=== PATIENT | female | born 1950 | race Caucasian/White ===

== ENCOUNTER 2022-04-21 08:18 | Outpatient (CLI) | payer MEDICARE, OTHER, SELFPAY | END 2022-04-21 08:19 | disposition home or self-care (01) | LOC: LAB 08:27 | PROVIDERS: PCP Family Medicine; Visit Provider Orthopaedic Surgery | DX: Z01.818 Encounter for other preprocedural examination (principal) | CPT/HCPCS: 36415; 86850; 86900; 86901 ==

== ENCOUNTER 2022-04-23 10:26 | Day surgery (SDC) | payer MEDICARE, OTHER, SELFPAY ==
[2022-04-16] MEDS: ACETAMINOPHEN 500 MG TABLET 1000 MG PO (11:07)
[2022-04-23] VITALS (31 sets, daily range): BP systolic 87–148; BP diastolic 29–79; PULSE 53–86; RESP 11–20; TEMP 36.3–37.2; O2SAT 89–100; BMI 26.9
[2022-04-23] MEDS: SODIUM CHLORIDE 0.9 % (FLUSH) 10 ML SYRINGE IVF (10:45)
[2022-04-23] MEDS: LACTATED RINGERS 1000 ML 1,000 ML 100 ML IV (10:45)
[2022-04-23] MEDS: OXYCODONE (CR) 10 MG TAB.ER.12H PO (11:00)
--- NOTE | 2022-04-23 11:17 | SUR.PREOP ---
TIME?OUT:? PT/RN/MDA?VERIFICATION?OF?SURGICAL?SITE,?PROCEDURE,?AND?CONSENT OBTAINED?PRIOR?TO?INVASIVE?PROCEDURE. CORRECT SITE IDENTIFIED, SITE MARKED. BLOCK COMPLETED BY DR LILY BELL MDA AND MARILYN HOLMAN
[2022-04-23] MEDS: MIDAZOLAM HCL 1 MG/ML inj IVP (11:20)
[2022-04-23] MEDS: fentaNYL 100 MCG/2 ML inj IVP (11:20)
[2022-04-23] MEDS: CEFAZOLIN 2 GM INJ IVP (11:40)
--- NOTE | 2022-04-23 13:20 | CRLHL7_ITS ---
For Patients: As a result of the Cures Act, medical imaging exams and procedure reports are released immediately into your electronic medical record. You may view this report before your referring provider. If you have questions, please contact your health care provider. Indication: post op AZUCENA Technique: AP hip centered pelvis and lateral view left hip Findings/Impression: Hardware from a left total hip arthroplasty is in satisfactory position. Bone alignment is normal. No sign of acute fracture. Postop changes are within normal limits. Dictated by Jasper Correa MD @ 04/23/2022 2:36:03 PM (Electronically Signed)
--- NOTE | 2022-04-23 13:25 | P.ORPRC_ITS ---
Procedure Note Date of procedure: 04/23/22 Procedure: SURGEON: Saw Don MD ADVERTISING SALES EXECUTIVE: Marcia Alamo PA-C, JENA Ramirez PREOPERATIVE DIAGNOSIS: Left hip osteoarthritis POSTOPERATIVE DIAGNOSIS: Left hip osteoarthritis NAME OF OPERATION: Left total hip arthroplasty IMPLANTS: 1. [employer] [place] # 50 sector ingrowth cup 2. 32 x +4 neutral polyethylene 3. Actis #3 standard collared ingrowth stem 4. 32+ 1 ceramic femoral head ANESTHESIA: General ESTIMATED BLOOD LOSS: 500 cc COMPLICATIONS: None SPECIMENS: None DRAINS: None PREOPERATIVE ANTIBIOTICS: Ancef 2 grams INDICATIONS: The patient is a 71-year-old with a longstanding history of severe, unrelenting left hip pain secondary to end-stage left hip osteoarthritis. Despite appropriate nonoperative management, including activity modification, use of an assist device, anti-inflammatories, [id number] pain medication, physical therapy and injections, they continue to have pain and disability. Operative intervention was offered. The risks, benefits and expected outcomes were discussed in detail. These incl uded but were not limited to: Infection, bleeding, injury to blood vessel or nerve, venous thromboembolism. All questions were answered to their satisfaction. Use of an funeral home assistant was necessary throughout the case for patient positioning and safety, soft tissue retraction and closure. PROCEDURE: The patient was placed supine on the [place] table. General anesthesia was administered. The funeral home assistant made sure the patient was properly positioned. The left hip was prepped and draped in the usual sterile fashion. The image intensifier was brought in for a perfect AP pelvis and a perfect double tear drop AP view of each hip which were used for intraoperative templating with our fluoroscopic guide. An oblique incision was made 3 cm distal and 3 cm lateral to the anterior superior iliac spine. The funeral home assistant retracted the soft tissues to protect them. Subcutaneous dissection was taken with electrocautery to the superficial fascia. The fascia was divided in line with the incision. Blunt dissection was carried medially to the tensor fascia inés and sartorius interval. Deep dissection was carried with electrocautery. The circumflex vessels were cauterized and divided. The capsule was exposed and then divided in a T- fashion, tagged with #1 Ethibond sutures. Retractors were placed in the joint, held by the funeral home assistant. The corkscrew was placed in the femoral head. The neck cut was made in the subcapital region. We made a second neck cut more distal. The napkin ring of bone was removed. The femoral head was removed intact. Acetabular retractors were placed, held by the funeral home assistant. The labrum was sharply debrided. The capsule was released. The 43 mm reamer was used to the true medial wall. We then enlarged in 2 mm increments using the image intensifier for our reamer placement. We impacted the cup which had excellent purchase. We placed the hole eliminator and the polyethylene. Attention was then turned to the proximal femur. The limb was placed in 140 de grees of external rotation, maximum extension and adduction. A significant amount of time was spent releasing the capsule to allow us to deliver the femur into the wound and complete the femoral side safely. Retractors were held by the funeral home assistant throughout the femoral preparation. The jukebox routeman and canal finder were used. Broaches were used to a stable size. The calcar reamer was used. Trial components were placed. The hip was reduced and was found to be stable with appropriate soft tissue tension. Length and offset had been nicely restored using the image intensifier and our fluoroscopic guide. Trial components were removed. The stem was impacted. We placed the femoral head. Again, the hip was reduced and was found to be stable with appropriate soft tissue tension. Length and offset had been nicely restored. The funeral home assistant did a three minute dilute Betadine solution soak. The funeral home assistant irrigated the wound with 3 liters of normal saline via pulse lavage. The funeral home assistant repaired the anterior capsule with a #1 Vicryl and our previously placed Ethibond sutures. The funeral home assistant closed the fascia over the tensor fascia inés with a #1 PDO Stratafix, subcutaneous tissues with 2-0 Vicryl, skin with a running 3-0 Stratafix and glue. A dry dressing was applied by the funeral home assistant. Sponge and needle counts were correct x 2. The patient tolerated the procedure well; there were no apparent complications. They were awakened and extubated in the operating room, sent to the Post-Anesthesia Care Unit in satisfactory condition. PLAN: 1. The patient will be mobilized with physical therapy, weight-bearing as tolerates 2. Xarelto x 5 days then aspirin x 30 days will be used for DVT prophylaxis 3. The patient will be discharged once medically appropriate
--- NOTE | 2022-04-23 13:34 | CRLHL7_ITS ---
For Patients: As a result of the Cures Act, medical imaging exams and procedure reports are released immediately into your electronic medical record. You may view this report before your referring provider. If you have questions, please contact your health care provider. Indication: Hip replacement surgery Technique: AP hip fluoroscopic image. Fluoroscopy time 78.1 seconds. Findings/Impression: Hardware from a left total hip arthroplasty is in satisfactory position. Dictated by Jasper Correa MD @ 04/23/2022 1:43:12 PM (Electronically Signed)
--- NOTE | 2022-04-23 14:09 | W.ANESCHARGE ---
Anesthesia Charges Start Date/Time Anesthesia Start Date: 04/23/22 Anesthesia Start Time: 11:32 Stop Date/Time Anesthesia Stop Date: 04/23/22 Anesthesia Stop Time: 14:04 Summary Emergency: No Extremes of Age: Over 72-CPT [id number]
--- NOTE | 2022-04-23 14:18 | W.ANESCHARGE ---
Anesthesia Charges Start Date/Time Anesthesia Start Date: 04/23/22 Anesthesia Start Time: 11:32 Stop Date/Time Anesthesia Stop Date: 04/23/22 Anesthesia Stop Time: 14:04 Summary Emergency: No
[2022-04-23] MEDS: diphenhydrAMINE 50 MG/ML inj IVP (14:23)
--- NOTE | 2022-04-23 14:27 | P.IMCN_ITS ---
Date of Consult Patient: [facility] Patient Consult date: 04/23/22 Requesting Physician: Orthopedics ([place]) Primary Care Provider: Sol Crawford MD Consult Narrative Reason for consult: Medical management kidney disease, GERD, hypertension, and MS Narrative: Kenyatta Younger is a 71 year old female underwent an elective left total hip arthroplasty today by Dr. Don for intractable pain due to end-stage osteoarthritis. She tells me the IV was not working postoperatively, so there was a time where she was a little bit behind on pain medication, but she has c aught up now and is feeling better again. Her blood pressures have remained low normal in the 90s systolic. She tells me that at home her goal is 140 systolic and it is often higher than that when she is at the doctor's office. She is normally a big water drinker and does not think she was dehydrated coming into this, but does note that she Is extremely thirsty since she was not able to drink since midnight. 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) Stage 1 chronic kidney disease Trigger finger of left thumb (11/08/09) Trigger finger of right thumb (11/08/09) Vaccination not carried out Vertigo White coat syndrome with diagnosis of hypertension Surgical History (Updated 04/23/22 @ 14:56 by Katja Craft MD) H/O vaginal hysterectomy (11/21/10) History of colonoscopy (04/09/18) History of esophagogastroduodenoscopy (EGD) History of hysterectomy for benign disease (02/2011) S/P total left hip arthroplasty Family History (Updated 04/23/22 @ 14:58 by Katja Craft MD) Uncle Colon cancer, Onset Age: 60 Sister Congenital heart disease Mother Stroke, Onset Age: 70 Other Colonic polyp Social History (Updated 04/23/22 @ 16:43 by Katja Craft MD) Narrative: does not drink alcohol does not exercise 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 He is a quadriplegic from a motor vehicle accident 20 years ago. He is somewhat independent though, even being able to drive by himself. tobacco abuse- 3 Cigarettes/day, 45 years on and off wishes to be DNR/DNI Smoking Status: Current some day smoker What tobacco products do you use: cigarettes Do you use any of these nicotine containing products: None How often do you have a drink containing alcohol: never AUDIT-C Alcohol total score: 0 Non-prescribed substance use: denies use Caffeine: Yes (coffee, 1 cup/morning; occ Pepsi) Are you using contraception or practicing any form of control: No Meds Home Medications and Allergies Home Medications Medication Instructions Recorded Confirmed Type amlodipine 5 mg tablet 5 mg PO DAILY 04/19/22 04/23/22 History aspirin 81 mg tablet,delayed 81 mg PO DAILY 04/19/22 04/23/22 History release lorazepam 0.5 mg tablet (Ativan) 0.5 mg PO DAILY PRN 04/19/22 04/23/22 History losartan 25 mg tablet 25 mg PO DAILY 04/19/22 04/23/22 History pantoprazole 20 mg tablet,delayed 20 mg PO DAILY 04/19/22 04/23/22 History release pravastatin 10 mg tablet 10 mg PO HS 04/19/22 04/23/22 History Home Medication Comments: Aspirin, fish oil and other supplements were held 5 days ago for surgery. Allergies Allergy/AdvReac Type Severity Reaction Status Date / Time escitalopram AdvReac Mild Nausea Verified 04/23/22 11:16 NSAIDS (Non-Steroidal AdvReac Unknown Kidney Verified 04/23/22 11:16 Anti-Inflamma issue-not suppose to take Exam Narrative: Exam Narrative: General: No acute distress. Awake alert oriented x3. Laying flat in bed with a Giles warmer on. HEENT: Normocephalic atraumatic, pupils equally round and reactive to light and accommodation. Oropharynx clear. Mucous membranes are slightly dry. No cervical lymphadenopathy, thyromegaly or carotid bruits. No JVD. Cardiovascular: Regular rate and rhythm. No murmurs, gallops, or rubs. Chest: No increased work of breathing. Clear to auscultation bilaterally. No crackles or wheezes. Abdomen: Bowel sounds present. Soft, nondistended, nontender. No hepatosplenomegaly or masses. Extremities: left anterior hip bandage is clean, dry, and intact. No edema, no cyanosis or clubbing. Skin: No jaundice, no pallor, no rashes. Const: Vital Signs, click to edit/add: Vital Signs - 24 hr 04/23/22 11:01 04/23/22 11:20 04/23/22 11:25 Temperature 97.4 F L Pulse Rate 66 77 75 Respiratory Rate 20 12 14 Blood Pressure 148/75 H 144/68 H 145/74 H Pulse Oximetry 96 100 100 04/23/22 11:30 Temperature Pulse Rate 78 Respiratory Rate 14 Blood Pressure 146/79 H Pulse Oximetry 100 Assessment and Plan Assessment and plan (1) S/P total left hip arthroplasty: Status: Acute Assessment and Plan: Doing well, cares per Ortho. (2) Hypertension: Status: Chronic Assessment and Plan: Blood pressure low normal postoperatively, asymptomatic. Will hold antihyper tensives. Encourage oral fluids. (3) Multiple sclerosis: Problem comment: exconde Status: Chronic Assessment and Plan: Stable. Not currently on any medications. Monitor for symptoms. (4) Gastroesophageal reflux disease with hiatal hernia: Status: Chronic Assessment and Plan: Continue daily pantoprazole. (5) Dyslipidemia: Status: Chronic Assessment and Plan: Continue pravastatin. (6) Generalized anxiety disorder: Status: Chronic Assessment and Plan: Continue lorazepam p.r.n. as she takes at home. 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 Check these and renal function tomorrow. Plan VTE prophylaxis with 5 days of Xarelto then switching to twice a day aspirin.
[2022-04-23] MEDS: HYDROmorphone 0.5 mg/0.5 ml inj IVP (14:49)
--- NOTE | 2022-04-23 15:25 | W.PM.NB ---
Nerve Block Nerve Block Time Seen by Provider: 15:10 Date Seen: 04/23/22 Type of block requested by surgeon for post-operative analgesia: MITZY/LFCN Side: left Time out performed: Yes Verification of patient name: Yes Verification of date of : Yes Site marking: site marked Name of person performing procedure: Thony Martines Assistants, if any: ELECTRONIC PAGINATION SYSTEM OPERATOR Continuous monitoring Was continuous monitoring of O2 sat, B/P, groundwater monitoring technician, recorded every 15 minutes?: Yes Procedure Checklist: sterile prep, needles (22g) and gloves Ultrasound guided. Images saved: Yes Medications given in 5ml increments after negative aspiration: Ropivicaine %: 0.5 mL: 20 Needle gauge: 22 Patient tolerated procedure well: Yes Additional comments: MITZY block redone in PACU
[2022-04-23] MEDS: LACTATED RINGERS 1000 ML 1,000 ML 75 ML IV (16:12)
[2022-04-23] MEDS: CEFAZOLIN 1 GM in 0.9 % SODIUM CHLORIDE Mini-bag 100 ML IVPB (18:07)
[2022-04-23] MEDS: ACETAMINOPHEN 500 MG TABLET 1000 MG PO (18:07)
[2022-04-23] MEDS: OXYCODONE 5 MG TABLET PO ×2 (18:10→20:41)
--- NOTE | 2022-04-23 19:47 | PC.NURSE ---
pt to floor at 1540. pt pleasant and cooperative. tolerating PO fluids, ate few bites of soup for dinner, stated slight nausea. c/o pain 8/, 10mg oxy given. pt has not yet gotten up to chair. BP 90/60s, encouraged liquids, MD aware. 75ml LR running. 1L o2 when pt is sleeping as she dipped as low as 83% on RA. Dressing to left hip CDI, active ice on.
[2022-04-23] MEDS: SENNOSIDES 1 TAB TABLET 2 TAB PO (20:40)
[2022-04-23] MEDS: PRAVASTATIN SODIUM 20 MG TABLET 10 MG PO (20:42)
[2022-04-24] MEDS: ACETAMINOPHEN 500 MG TABLET 1000 MG PO ×3 (00:22→12:01)
[2022-04-24] MEDS: 0.9 % SODIUM CHLORIDE 500 ML IV ×2 (00:40→05:19)
[2022-04-24] MEDS: CEFAZOLIN 1 GM in 0.9 % SODIUM CHLORIDE Mini-bag 100 ML IVPB ×2 (01:45→09:26)
[2022-04-24] MEDS: diphenhydrAMINE 50 MG/ML inj IVP (01:52)
[2022-04-24 03:00] VITALS: BP 128/71; PULSE 96; RESP 18; TEMP 36.6; O2SAT 96
[2022-04-24] MEDS: OXYCODONE 5 MG TABLET PO ×4 (03:53→12:00)
[2022-04-24] MEDS: MAG HYDROX/ALUMINUM HYD/SIMETH 30 ML ORAL.SUSP PO (03:59)
[2022-04-24] MEDS: HYDROmorphone 0.5 mg/0.5 ml inj IVP (04:07)
[2022-04-24] MEDS: LACTATED RINGERS 1000 ML 1,000 ML 75 ML IV (06:15)
[2022-04-24] MEDS: OMEPRAZOLE 20 MG CAPSULE DR PO (06:15)
[2022-04-24] MEDS: ONDANSETRON 2 MG/ML inj 4 MG IVP (06:18)
[2022-04-24 07:00] VITALS: BP 123/74; PULSE 67; RESP 18; TEMP 36.6; O2SAT 95
[2022-04-24 07:08] LABS: Chloride* 101 mmol/L (96-114); Sodium* 129 mmol/L (135-149)
[2022-04-24 07:11] LABS: Blood Urea Nitrogen* 18 mg/dL (7-30); Carbon Dioxide* 23 mmol/L (20-32); Creatinine* 0.7 mg/dL (0.5-1.5); Est. Creatinine Clearance* 41.99; Estimated Glomerular Filt Rate 93.56; Glucose* 141 mg/dL (60-115)
[2022-04-24 07:12] LABS: Calcium* 7.8 mg/dL (8.4-10.6)
--- NOTE | 2022-04-24 07:41 | PC.NURSE ---
[id number]: Patient cooperative with cares. Rates pain 5-9/10. See Emar for medication administration. A1, walker, GB. Tolerates well. CMS intact. Dressing to L. hip C/D/I. Unable to void. Bladder scan for 235mL and 218mL. Saline bolus x2 administered. Results pending. C/o nausea and had 1 small emesis. Zofran administered for relief.
[2022-04-24] MEDS: SENNOSIDES 1 TAB TABLET 2 TAB PO (08:52)
[2022-04-24] MEDS: RIVAROXABAN 10 MG TABLET PO (08:52)
[2022-04-24 08:58] LABS: Basophils Percent Auto 0.1 % (0.0-3.0); Hematocrit 27.3 % (33.0-51.0); Hemoglobin* 8.9 gm/dL (12.0-16.0); Immature Granulocytes Abs Auto 0.03 K/uL (0.00-0.30); Lymphocytes Percent Auto 8.2 % (20-44); Mean Corpuscular HGB Conc 33 gm/dL (32-36); Mean Corpuscular Hemoglobin 32 pg (26-34); Mean Corpuscular Volume 97 fL (80-100); Monocytes Percent Auto 6.8 % (0.0-11.0); Neutrophils Percent Auto 84.7 % (42.0-72.0); Platelet Count* 221 K/uL (140-440); RDW Coefficient of Variation % 11.8 % (11.5-15.5); Red Blood Count 2.81 m/uL (4.00-5.20); White Blood Count* 18.42 K/uL (4.50-11.00)
[2022-04-24 09:03] LABS: Slide Review Reflex No
--- NOTE | 2022-04-24 09:17 | PM.ORPN ---
Subjective Subjective Time Seen by Provider: 08:30 Date Seen: 04/24/22 Principal diagnosis: Status post left hip replacement Interval history: Patient is comfortable at rest. She describes anterior thigh discomfort. Ortho Exam Narrative Exam Narrative: Alert. Patient is in no acute distress. Converses without labored breathing. Hearing is grossly intact. CMS intact left lower extremity. Mild thigh tenderness to palpation. Soft tissues of the thigh and hip are soft. Dressing in place. Dressing has had additional tape applied. Nursing will change this dressing so it is waterproof for her. Const Vital Signs, click to edit/add: Vital Signs - 24 hr 04/23/22 11:01 04/23/22 11:20 04/23/22 11:25 Temperature 97.4 F L Pulse Rate 66 77 75 Pulse Rate [Right Pulse Oximeter] Respiratory Rate 20 12 14 Blood Pressure 148/75 H 144/68 H 145/74 H Blood Pressure [Right Arm] Pulse Oximetry 96 100 100 04/23/22 11:30 04/23/22 14:00 04/23/22 14:05 Temperature 97.6 F Pulse Rate 78 75 64 Pulse Rate [Right Pulse Oximeter] Respiratory Rate 14 12 16 Blood Pressure 146/79 H 96/62 91/74 Blood Pressure [Right Arm] Pulse Oximetry 100 93 94 04/23/22 14:10 04/23/22 14:15 04/23/22 14:20 Temperature Pulse Rate 70 65 77 Pulse Rate [Right Pulse Oximeter] Respiratory Rate 12 12 11 L Blood Pressure 102/58 L 104/29 L 120/79 Blood Pressure [Right Arm] Pulse Oximetry 93 93 92 04/23/22 14:25 04/23/22 14:30 04/23/22 14:35 Temperature Pulse Rate 65 54 L 55 L Pulse Rate [Right Pulse Oximeter] Respiratory Rate 12 15 12 Blood Pressure 114/66 103/51 L 95/55 L Blood Pressure [Right Arm] Pulse Oximetry 92 93 95 04/23/22 14:40 04/23/22 14:45 04/23/22 14:55 Temperature Pulse Rate 53 L 59 L 56 L Pulse Rate [Right Pulse Oximeter] Respiratory Rate 12 20 14 Blood Pressure 98/47 L 98/44 L 87/61 L Blood Pressure [Right Arm] Pulse Oximetry 94 93 92 04/23/22 15:00 04/23/22 15:10 04/23/22 15:25 Temperature Pulse Rate 63 60 Pulse Rate [Right Pulse Oximeter] Respiratory Rate 12 13 12 Blood Pressure 93/50 L 100/68 Blood Pressure [Right Arm] Pulse Oximetry 89 93 91 04/23/22 15:30 04/23/22 15:40 04/23/22 15:45 Temperature 98.2 F 97.5 F L 98 F Pulse Rate 58 L 60 Pulse Rate [Right Pulse Oximeter] 60 64 Respiratory Rate 14 14 16 Blood Pressure 88/42 L Blood Pressure [Right Arm] 94/57 L 98/67 Pulse Oximetry 91 96 98 04/23/22 16:00 04/23/22 16:15 04/23/22 16:30 Temperature 98 F 98 F 98 F Pulse Rate Pulse Rate [Right Pulse Oximeter] 72 61 64 Respiratory Rate 16 16 16 Blood Pressure Blood Pressure [Right Arm] 103/72 91/60 98/55 L Pulse Oximetry 98 98 98 04/23/22 17:00 04/23/22 17:30 04/23/22 18:00 Temperature 98.1 F 98.3 F 98.3 F Pulse Rate Pulse Rate [Right Pulse Oximeter] 86 80 76 Respiratory Rate 16 16 16 Blood Pressure Blood Pressure [Right Arm] 91/52 L 117/71 101/63 Pulse Oximetry 98 98 98 04/23/22 19:00 04/23/22 20:00 04/23/22 21:00 Temperature 99.0 F 98.8 F 98.9 F Pulse Rate Pulse Rate [Right Pulse Oximeter] 76 81 77 Respiratory Rate 18 18 16 Blood Pressure Blood Pressure [Right Arm] 101/58 L 116/73 109/73 Pulse Oximetry 98 95 96 04/23/22 23:00 04/24/22 03:00 04/24/22 07:00 Temperature 97.9 F 97.9 F 97.9 F Pulse Rate Pulse Rate [Right Pulse Oximeter] 71 96 67 Respiratory Rate 18 18 18 Blood Pressure Blood Pressure [Right Arm] 113/73 128/71 123/74 Pulse Oximetry 97 96 95 Assessment and Plan Assessment and plan (1) S/P total left hip arthroplasty: Status: Acute Assessment and Plan: Plan for discharge is today to home if they meet discharge criteria. DVT prophylaxis includes Xarelto 10 mg daily for total of 5 days, then aspirin 81 mg twice daily for 30 days, Ismael stockings x1 month may remove for 1 hr per day, frequent ambulation Remove dressing 1 week. Observe wound and phone Orthopedics with any questions or concerns Use Ice on operative hip unrestricted. Return to clinic in 1 week with PA for a wound check Return to clinic in [address] Don Minimize narcotic use. Wean off and discontinue soon as possible. Activities as tolerated. No strenuous activity. 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
[2022-04-24 11:00] VITALS: BP 132/80; PULSE 69; RESP 18; TEMP 36.7; O2SAT 91
--- NOTE | 2022-04-24 13:15 | PM.DS1 ---
DS: Providers Provider Primary care physician: Sol Crawford MD Attending Physician on discharge: Saw Don MD DS: Diagnosis Discharge Diagnosis (1) Multiple sclerosis: Status: Chronic Problem details: No active management (2) Urinary retention: Status: Acute Problem details: 250 mL of retained urine in her bladder when she was unable to void. possibly due to neurogenic bladder from multiple sclerosis. (3) Hypertension: Status: Chronic Problem details: postoperative blood pressure was relatively low. Blood pressure medicines have been held. Blood pressure has now rebounded and blood pressure medicines can be resumed. (4) S/P total left hip arthroplasty: Status: Acute Problem details: Adequate pain control. Slow progress with therapy. DS: Summary Hospital Course Hospital Course: 71-year-old female underwent left total hip arthroplasty by Dr. Don. There were no operative complications. Postoperatively she has had some challenges with pain control and she has been slow to make progress with physical therapy. She has been able to eat and drink without nausea vomiting. She reports she has not voided overnight. Bladder scan this morning showed 250 mL of urine. She reported that she ate a good breakfast this morning and has been drinking quite a bit of water. Postoperative blood pressure was low but is now recovered. Time Spent with Patient Time attestation: Total time spent providing and/or coordinating discharge services: Exam Narrative: Exam Narrative: She is alert and appears in no distress. Breathing is unlabored. Examination of her hip without significant swelling or erythema. No significant tenderness. She does have pain with range of motion in her left hip. Distally she has intact pulses and sensation and no edema. Intact strength in her ankles. Const: Vital Signs, click to edit/add: Vital Signs - 24 hr 04/23/22 14:00 04/23/22 14:05 04/23/22 14:10 Temperature 97.6 F Pulse Rate 75 64 70 Pulse Rate [Right Pulse Oximeter] Respiratory Rate 12 16 12 Blood Pressure 96/62 91/74 102/58 L Blood Pressure [Ri ght Arm] Pulse Oximetry 93 94 93 04/23/22 14:15 04/23/22 14:20 04/23/22 14:25 Temperature Pulse Rate 65 77 65 Pulse Rate [Right Pulse Oximeter] Respiratory Rate 12 11 L 12 Blood Pressure 104/29 L 120/79 114/66 Blood Pressure [Ri ght Arm] Pulse Oximetry 93 92 92 04/23/22 14:30 04/23/22 14:35 04/23/22 14:40 Temperature Pulse Rate 54 L 55 L 53 L Pulse Rate [Right Pulse Oximeter] Respiratory Rate 15 12 12 Blood Pressure 103/51 L 95/55 L 98/47 L Blood Pressure [Ri ght Arm] Pulse Oximetry 93 95 94 04/23/22 14:45 04/23/22 14:55 04/23/22 15:00 Temperature Pulse Rate 59 L 56 L 63 Pulse Rate [Right Pulse Oximeter] Respiratory Rate 20 14 12 Blood Pressure 98/44 L 87/61 L 93/50 L Blood Pressure [Ri ght Arm] Pulse Oximetry 93 92 89 04/23/22 15:10 04/23/22 15:25 04/23/22 15:30 Temperature 98.2 F Pulse Rate 60 58 L Pulse Rate [Right Pulse Oximeter] Respiratory Rate 13 12 14 Blood Pressure 100/68 88/42 L Blood Pressure [Ri ght Arm] Pulse Oximetry 93 91 91 04/23/22 15:40 04/23/22 15:45 04/23/22 16:00 Temperature 97.5 F L 98 F 98 F Pulse Rate 60 Pulse Rate [Right Pulse Oximeter] 60 64 72 Respiratory Rate 14 16 16 Blood Pressure Blood Pressure [Ri ght Arm] 94/57 L 98/67 103/72 Pulse Oximetry 96 98 98 04/23/22 16:15 04/23/22 16:30 04/23/22 17:00 Temperature 98 F 98 F 98.1 F Pulse Rate Pulse Rate [Right Pulse Oximeter] 61 64 86 Respiratory Rate 16 16 16 Blood Pressure Blood Pressure [Ri ght Arm] 91/60 98/55 L 91/52 L Pulse Oximetry 98 98 98 04/23/22 17:30 04/23/22 18:00 04/23/22 19:00 Temperature 98.3 F 98.3 F 99.0 F Pulse Rate Pulse Rate [Right Pulse Oximeter] 80 76 76 Respiratory Rate 16 16 18 Blood Pressure Blood Pressure [Ri ght Arm] 117/71 101/63 101/58 L Pulse Oximetry 98 98 98 04/23/22 20:00 04/23/22 21:00 04/23/22 23:00 Temperature 98.8 F 98.9 F 97.9 F Pulse Rate Pulse Rate [Right Pulse Oximeter] 81 77 71 Respiratory Rate 18 16 18 Blood Pressure Blood Pressure [Ri ght Arm] 116/73 109/73 113/73 Pulse Oximetry 95 96 97 04/24/22 03:00 04/24/22 07:00 04/24/22 11:00 Temperature 97.9 F 97.9 F 98.0 F Pulse Rate Pulse Rate [Right Pulse Oximeter] 96 67 69 Respiratory Rate 18 18 18 Blood Pressure Blood Pressure [Ri ght Arm] 128/71 123/74 132/80 Pulse Oximetry 96 95 91 Documenting provider has reviewed patient's vital signs: yes DS: Data Data Completed and Pending Labs on day of discharge: Labs from last 24 hours 04/24/22 04/24/22 06:44 06:44 WBC 18.42 H RBC 2.81 L Hgb 8.9 L Hct 27.3 L MCV 97 MCH 32 MCHC 33 RDW Coeff of [place] 11.8 Plt Count 221 Neut % (Auto) 84.7 H Lymph % (Auto) 8.2 L [place] % (Auto) 6.8 Eos % (Auto) 0.0 Baso % (Auto) 0.1 Neut # (Auto) 15.60 H Lymph # (Auto) 1.50 [place] # (Auto) 1.30 H Eos # (Auto) 0.00 Baso # (Auto) 0.00 Abs Immat Gran (auto) 0.03 Sodium 129 L Potassium 4.0 Chloride 101 Carbon Dioxide 23 BUN 18 Creatinine 0.7 Estimated Creat Clear 41.99 Glucose 141 H Calcium 7.8 L Discharge Plan Discharge Disposition: Home, Self-Care Discharging Surgeon: Saw Don Follow-Up Appointment: One week Prescriptions: New acetaminophen 500 mg Tablet 500 - 1,000 mg PO Q6H MDD 4000 mg per day PRNQty: 100 0RF oxycodone 5 mg Tablet 2.5 - 5 mg PO Q4-6H PRN (Reason: Pain) Qty: 42 0RF Xarelto 10 mg Tablet 10 mg PO DAILY Qty: 4 0RF Rx Instructions: For DVT prophylaxis. Take this medication daily for 4 days, then aspirin 81 mg twice daily for 30 days. sennosides [Senna Lax] 8.6 mg Tablet 17.2 mg PO BID PRNQty: 100 0RF Rx Instructions: For narcotic related constipation aspirin 81 mg tablet,chewable 81 mg PO BID 30 Days Qty: 60 2RF Continued amlodipine 5 mg tablet 5 mg PO DAILY 0RF Label Comments: TAKE 1 TABLET BY MOUTH DAILY. pantoprazole 20 mg tablet,delayed release (DR/EC) 20 mg PO DAILY 0RF Label Comments: TAKE ONE TABLET BY MOUTH DAILY lorazepam [Ativan] 0.5 mg tablet 0.5 mg PO DAILY PRN0RF Label Comments: 0.5 MG PO UD PRN 1 tab as needed for anxiety attack, has to last 12 months pravastatin 10 mg tablet 10 mg PO HS 0RF Label Comments: TAKE 1 TABLET AT BEDTIME losartan 25 mg tablet 25 mg PO NIGHTLY 0RF Label Comments: TAKE 1 TABLET BY MOUTH ONCE DAILY. Discontinued aspirin 81 mg tablet,delayed release (DR/EC) 81 mg PO DAILY 0RF Activity Level: Activity as Tolerated and No strenuous activity Activity Detail: Keep dressing on for 1 week. Dressing is waterproof. May shower. Surgical glue covers the wound. Attend Outpatient physical therapy as scheduled. Ice operative extremity without restriction. Wear compression stockings for 1 month post surgery. May remove for 1 hour per day. Notify Orthopedics with any questions or concerns ([phone]). Discharge Diet: Regular Forms: Work/Release Restrictions Follow-up: Sol Crawford MD [Primary Care Provider] - Discharge Orders: Discharge Order (Routine); Ordered 04/24/22 Ordered By: Ari Kellogg
--- NOTE | 2022-04-24 15:05 | PC.NURSE ---
pt. alert and oriented, Pt. denied any nausea. Tolerated diet well. Pt. was not able to void, used bladder scanner and pt. had 249CC. updated. no changes. Pt. finally voided and Saline locked since pt. has been able to void w/o issue. Pt. rated pain 10/10. 10mg of oxy administered and tolerated well.
--- NOTE | 2022-04-24 15:17 | PC.NURSE ---
Discharge: Patient discharge instructions given, follow ups and medications reviewed. Questions answered as needed. Patient tolerating activity well, moving with walker. Wheelchair to entrance, discharged home @ 1500.
== END 2022-04-24 15:00 | disposition home or self-care (01) ==
LOC: OR 10:27 → MEDSURG 15:15
PROVIDERS: Family Medicine; Physician Assistant; PCP Family Medicine; Visit Provider Orthopaedic Surgery
PROC: (CPT 27130; principal; 2022-04-23 12:30)
DX: M16.12 Unilateral primary osteoarthritis, left hip (principal); I12.9 Hypertensive chronic kidney disease with stage 1 through stage 4 chronic kidney disease, or unspecified chronic kidney disease; N18.1 Chronic kidney disease, stage 1; G35 Multiple sclerosis; F41.1 Generalized anxiety disorder; R33.9 Retention of urine, unspecified; K21.9 Gastro-esophageal reflux disease without esophagitis; Q87.2 Congenital malformation syndromes predominantly involving limbs; E78.5 Hyperlipidemia, unspecified
CPT/HCPCS: 27130; 1214; 36415; 51798; 64450; 73501; 76000; 76942; 80048; 84132; 85025; 85027; 97110; 97116; 97161; 97165; 97535; 99100; 99211; A9270; C1776; J0330; J0690; J1100; J1170; J1200; J2250; J2370; J2405; J2704; J2710; J2795; J3010; J7120

== ENCOUNTER 2022-04-26 18:46 | Outpatient (CLI) | payer MEDICARE, OTHER, SELFPAY | END 2022-04-26 18:47 | disposition home or self-care (01) | LOC: AMB 05-03 09:36 | PROVIDERS: PCP Family Medicine; Visit Provider Family Medicine | DX: M25.552 Pain in left hip (principal); R53.83 Other fatigue | CPT/HCPCS: A0425; A0433 ==

== ENCOUNTER 2022-04-26 19:29 | Emergency (ER) | payer MEDICARE, OTHER, SELFPAY ==
[2022-04-26 19:36] VITALS: BP 140/80; PULSE 105; RESP 18; TEMP 37.2; O2SAT 99; BMI 26.9
[2022-04-26 19:43] VITALS: PULSE 105
--- NOTE | 2022-04-26 19:59 | CRLHL7_ITS ---
For Patients: As a result of the Cures Act, medical imaging exams and procedure reports are released immediately into your electronic medical record. You may view this report before your referring provider. If you have questions, please contact your health care provider. Indication: Postop left hip pain. Technique: Pelvis and left hip 3 views. Comparison: April 23, 2022. Findings: Bones: Alignment is normal. No fractures or bone lesions. Joint spaces: Hardware from a left hip arthroplasty is in satisfactory position without evidence of loosening. Soft tissues: Unremarkable. Impression: Unremarkable pelvis and left hip arthroplasty. No specific finding to explain pain. Dictated by Jayme Feliz MD @ 04/26/2022 9:17:36 PM (Electronically Signed)
[2022-04-26] MEDS: MORPHINE 4 MG/ML INJ IVP (20:11)
[2022-04-26 20:41] LABS: Lactate* 0.7 mmol/L (0.5-1.9)
[2022-04-26 20:43] LABS: Basophils Percent Auto 0.1 % (0.0-3.0); Eosinophils Percent Auto 0.3 % (0.0-7.0); Hematocrit 22.8 % (33.0-51.0); Immature Granulocytes Abs Auto 0.03 K/uL (0.00-0.30); Lymphocytes Percent Auto 25.3 % (20-44); Mean Corpuscular HGB Conc 33 gm/dL (32-36); Mean Corpuscular Hemoglobin 32 pg (26-34); Mean Corpuscular Volume 98 fL (80-100); Monocytes Percent Auto 9.4 % (0.0-11.0); Neutrophils Percent Auto 64.6 % (42.0-72.0); Platelet Count* 191 K/uL (140-440); RDW Coefficient of Variation % 12.3 % (11.5-15.5); Red Blood Count 2.33 m/uL (4.00-5.20); White Blood Count* 11.01 K/uL (4.50-11.00)
[2022-04-26 20:45] VITALS: BP 140/71; PULSE 98; RESP 16; O2SAT 98
[2022-04-26 20:52] LABS: Hemoglobin* 7.4 gm/dL (12.0-16.0); Slide Review Reflex No
--- NOTE | 2022-04-26 20:52 | ED.NURSE ---
critical hgb 7.4 updated to MD Renae
[2022-04-26 21:00] LABS: Chloride* 101 mmol/L (96-114)
[2022-04-26 21:01] LABS: Potassium* 3.8 mmol/L (3.6-5.1); Sodium* 130 mmol/L (135-149)
[2022-04-26 21:04] LABS: Blood Urea Nitrogen* 13 mg/dL (7-30); Carbon Dioxide* 27 mmol/L (20-32); Creatinine* 0.6 mg/dL (0.5-1.5); Est. Creatinine Clearance* 41.99; Estimated Glomerular Filt Rate 97 ml/min; Glucose* 113 mg/dL (60-115)
[2022-04-26 21:05] LABS: Calcium* 7.8 mg/dL (8.4-10.6)
--- NOTE | 2022-04-26 21:05 | ED_ITS ---
HPI - General Adult General Date Seen: 04/26/22 Chief complaint: Hip Injury/Pain Stated complaint: Post Op Hip Pain Time Seen by Provider: 04/26/22 19:41 Source: patient History of Present Illness HPI narrative: Patient is a 71 year old woman with underlying MS who is 3 days status post left total hip arthroplasty. She had some difficulties postop with pain management and also with urinary retention but was discharged postop day 1. She has been taking oxycodone at home, says initially she was taking 10 mg, but tried to cut down to 5. Since then she has been having significant difficulties with pain. Today she had a fever up to 100.9 at home which is what prompted her to come in. She has not had any chest pain, difficulty breathing or cough. Denies any urinary symptoms such as dysuria, urgency or frequency. She continues to have significant pain in the hip area. She has not noted any redness or increased swelling. She is taking Xarelto once a day for 5 days postop. Has not noted any asymmetric leg swelling. Does not have any history of DVT or PE. She has also struggled with nausea and constipation. She denies any falls. Related Data Home Medications Medication Instructions Recorded Confirmed amlodipine 5 mg tablet 5 mg PO DAILY 04/19/22 04/23/22 lorazepam 0.5 mg tablet (Ativan) 0.5 mg PO DAILY PRN 04/19/22 04/23/22 losartan 25 mg tablet 25 mg PO NIGHTLY 04/19/22 04/23/22 pantoprazole 20 mg tablet,delayed 20 mg PO DAILY 04/19/22 04/23/22 release pravastatin 10 mg tablet 10 mg PO HS 04/19/22 04/23/22 Previous Rx's Medication Instructions Recorded acetaminophen 500 mg tablet 500 - 1,000 mg PO Q6H PRN #100 tab 04/23/22 MDD 4000 mg per day aspirin 81 mg chewable tablet 81 mg PO BID 30 Days #60 tab 04/23/22 oxycodone 5 mg tablet 2.5 - 5 mg PO Q4-6H PRN #42 tab 04/23/22 rivaroxaban 10 mg tablet (Xarelto) 10 mg PO DAILY #4 tab 04/23/22 sennosides 8.6 mg tablet (Senna 17.2 mg PO BID PRN #100 tab 04/23/22 Lax) ondansetron HCl 4 mg tablet 4 mg PO TID-QID PRN #30 tab 04/26/22 Allergies Allergy/AdvReac Type Severity Reaction Status Date / Time escitalopram AdvReac Mild Nausea Verified 04/23/22 11:16 NSAIDS (Non-Steroidal AdvReac Unknown Kidney Verified 04/23/22 11:16 Anti-Inflamma issue-not suppose to take Review of Systems Status of ROS: Reports: 10 or more systems reviewed and unremarkable except as noted in History and [facility] Diverticulosis Dyslipidemia Gastroesophageal reflux disease with hiatal hernia (09/2019) Generalized anxiety disorder Headache History of trigger finger (2009) History of vertigo Hypertension Insomnia Lung nodule seen on imaging study Mammogram normal Menopausal vaginal dryness Multiple sclerosis Nail-patella syndrome Normal stress echocardiography Proteinuria Psoriasis 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) Stage 1 chronic kidney disease Trigger finger of left thumb (11/08/09) Trigger finger of right thumb (11/08/09) Vaccination not carried out Vertigo White coat syndrome with diagnosis of hypertension Surgical History H/O vaginal hysterectomy (11/21/10) History of colonoscopy (04/09/18) History of esophagogastroduodenoscopy (EGD) History of hysterectomy for benign disease (02/2011) S/P total left hip arthroplasty Family History Uncle Colon cancer, Onset Age: 60 Sister Congenital heart disease Mother Stroke, Onset Age: 70 Other Colonic polyp Social History Narrative: does not drink alcohol does not exercise 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 He is a quadriplegic from a motor vehicle accident 20 years ago. He is somewhat independent though, even being able to drive by himself. tobacco abuse- 3 Cigarettes/day, 45 years on and off wishes to be DNR/DNI Smoking Status: Current some day smoker What tobacco products do you use: cigarettes Do you use any of these nicotine containing products: None How often do you have a drink containing alcohol: never AUDIT-C Alcohol total score: 0 Non-prescribed substance use: denies use Caffeine: Yes (coffee, 1 cup/morning; occ Pepsi) Are you using contraception or practicing any form of control: No Exam Narrative: Exam Narrative: Vital signs as noted above. In general, an alert, well-appearing patient. Appears intermittently uncomfortable. Head: Normocephalic, atraumatic. Eyes: Pupils are equal reactive. Extraocular movements are full. Conjunctivae are normal. ENT: Mucous membranes are moist. Throat is normal. Neck: Supple without lymphadenopathy. Heart: Regular rate and rhythm. No murmur or rub. Lungs: Clear bilaterally. No increased work of breathing, crackles or wheezes. Abdomen: Soft and nontender. No organomegaly. Extremities: Well perfused. No significant edema. No calf tenderness. Pulses intact. On the left, incision is covered by her postop bandage. There is mild erythema that extends across her upper thigh medially. There is some warmth in this area and she is tender throughout the upper thigh. There is no fluctuance or crepitus. Dressing is dry. She has pain with any movement of the hip. Neurologic: Patient is alert and oriented to person and place. Speech is fluent. Face is symmetric. Moves all extremities equally. Affect: Normal. Skin: Warm and dry. Well perfused. Const: Vital Signs, click to edit/add: Vital Signs - 24 hr 04/26/22 19:36 04/26/22 19:43 Temperature 99.0 F Pulse Rate [Bilate ral Dorsalis Pedis ] 105 H Pulse Rate [Right Pulse Oximeter] 105 H Respiratory Rate 18 Blood Pressure [Ri ght Upper Arm] 140/80 H Pulse Oximetry 99 Documenting provider has reviewed patient's vital signs: yes Course Course Hospital Course: Patient received some morphine here for pain control. Declined a need for Zofran at this time. She also had some IV fluids. I reviewed her records. She did have trouble with pain control postoperatively and at the time of discharge. She had an elevated white blood cell count on postop day 1, it was 18,000. It is improved today at 11,000. Hemoglobin was 8.9 postop day 1, it is 7.4 today. She does not have significant swelling in the left thigh, I do not suspect she has significant hematoma there, but she may have had some bleeding, and that may have resulted in some additional pain and contributed to that area of erythema as well. She has had some degree of fever at home by her report, she is afebrile here. White blood cell count is somewhat reassuring. CRP is pending at this time. Lactate is normal. She has oxycodone at home, and it may be that she will just need to continue with the 10 mg dose for the time being rather than trying to go back down to 2 and half to 5 mg. Urine was notable for 2+ ketones, but she does not have any leukocytes, and does not describe any symptoms suggestive of urinary tract infection. She does not have any respiratory complaints, hypoxia, or anything else to suggest need for chest x- ray. In discussing her case with Orthopedics, Dr. Don feels this is likely related to hematoma, and recommends holding off on antibiotics at this time. She can continue her Xarelto. Reviewed with her that if the redness is significantly worsening, if she has fevers that persist over the next couple of days or cer tainly if she feels that she is getting significantly sicker, that she should return or check in with Ortho. Vital Signs Vital signs: Initial Vital Signs Temperature 99.0 F 04/26/22 19:36 Temperature Source Temporal Artery Scan 04/26/22 19:36 Pulse Rate 105 H 04/26/22 19:36 Respiratory Rate 18 04/26/22 19:36 Blood Pressure 140/80 H 04/26/22 19:36 Blood Pressure Mean 100 04/26/22 19:36 Blood Pressure Position Supine 04/26/22 19:36 Pulse Oximetry 99 04/26/22 19:36 Oxygen Delivery Method 04/26/22 19:36 Vital Signs Temperature 99.0 F 04/26/22 19:36 Pulse Rate 105 H 04/26/22 19:36 Respiratory Rate 18 04/26/22 19:36 Blood Pressure 140/80 H 04/26/22 19:36 Pulse Oximetry 99 04/26/22 19:36 Temperature 99.0 F 04/26/22 19:36 Pulse Rate 105 H 04/26/22 19:43 Respiratory Rate 18 04/26/22 19:36 Blood Pressure 140/80 H 04/26/22 19:36 Pulse Oximetry 99 04/26/22 19:36 Medical Decision Making Lab Data Labs: Lab Results 04/26/22 04/26/22 04/26/22 Range/Units 20:37 20:37 20:37 WBC 11.01 H (4.50-11.00) K/uL RBC 2.33 L (4.00-5.20) m/uL Hgb 7.4 L* (12.0-16.0) gm/dL Hct 22.8 L (33.0-51.0) % MCV 98 (80-100) fL MCH 32 (26-34) pg MCHC 33 (32-36) gm/dL RDW Coeff of [place] 12.3 (11.5-15.5) % Plt Count 191 (140-440) K/uL Neut % (Auto) 64.6 (42.0-72.0) % Lymph % (Auto) 25.3 (20-44) % [place] % (Auto) 9.4 (0.0-11.0) % Eos % (Auto) 0.3 (0.0-7.0) % Baso % (Auto) 0.1 (0.0-3.0) % Neut # (Auto) 7.10 H (1.7-7.0) K/uL Lymph # (Auto) 2.80 (0.90-2.90) K/uL [place] # (Auto) 1.00 H (0.00-0.90) K/UL Eos # (Auto) 0.00 (0.00-0.50) K/uL Baso # (Auto) 0.00 (0.00-0.30) K/uL Abs Immat Gran (auto) 0.03 (0.00-0.30) K/uL Sodium (135-149) mmol/L Potassium (3.6-5.1) mmol/L Chloride (96-114) mmol/L Carbon Dioxide (20-32) mmol/L BUN (7-30) mg/dL Creatinine (0.5-1.5) mg/dL Estimated Creat Clear Estimated GFR ml/min Glucose (60-115) mg/dL Lactate 0.7 (0.5-1.9) mmol/L Calcium (8.4-10.6) mg/dL C-Reactive Protein 14.0 H (0.5-1.0) mg/dL Urine Color (Yellow) Urine Appearance (Clear) Urine pH (5.0-8.5) Ur Specific [place] (1.000-1.030) Urine Protein (Negative) Urine Glucose (UA) (Negative) Urine Ketones (Negative) Urine Blood (Negative) Urine Nitrite (Negative) Urine Bilirubin (Negative) Urine Urobilinogen (0.2-1.0) Ur Leukocyte Esterase (Negative) 04/26/22 04/26/22 Range/Units 20:37 20:56 WBC (4.50-11.00) K/uL RBC (4.00-5.20) m/uL Hgb (12.0-16.0) gm/dL Hct (33.0-51.0) % MCV (80-100) fL MCH (26-34) pg MCHC (32-36) gm/dL RDW Coeff of [place] (11.5-15.5) % Plt Count (140-440) K/uL Neut % (Auto) (42.0-72.0) % Lymph % (Auto) (20-44) % [place] % (Auto) (0.0-11.0) % Eos % (Auto) (0.0-7.0) % Baso % (Auto) (0.0-3.0) % Neut # (Auto) (1.7-7.0) K/uL Lymph # (Auto) (0.90-2.90) K/uL [place] # (Auto) (0.00-0.90) K/UL Eos # (Auto) (0.00-0.50) K/uL Baso # (Auto) (0.00-0.30) K/uL Abs Immat Gran (auto) (0.00-0.30) K/uL Sodium 130 L (135-149) mmol/L Potassium 3.8 (3.6-5.1) mmol/L Chloride 101 (96-114) mmol/L Carbon Dioxide 27 (20-32) mmol/L BUN 13 (7-30) mg/dL Creatinine 0.6 (0.5-1.5) mg/dL Estimated Creat Clear 41.99 Estimated GFR 97 ml/min Glucose 113 (60-115) mg/dL Lactate (0.5-1.9) mmol/L Calcium 7.8 L (8.4-10.6) mg/dL C-Reactive Protein (0.5-1.0) mg/dL Urine Color Yellow (Yellow) Urine Appearance Clear (Clear) Urine pH 6.5 (5.0-8.5) Ur Specific [place] 1.015 (1.000-1.030) Urine Protein 1+ A (Negative) Urine Glucose (UA) Negative (Negative) Urine Ketones 2+ A (Negative) Urine Blood Trace-intact A (Negative) Urine Nitrite Negative (Negative) Urine Bilirubin Negative (Negative) Urine Urobilinogen 0.2 (0.2-1.0) Ur Leukocyte Esterase Negative (Negative) Discharge Plan Discharge Prescriptions: No Action amlodipine 5 mg tablet 5 mg PO DAILY 0RF Label Comments: TAKE 1 TABLET BY MOUTH DAILY. pantoprazole 20 mg tablet,delayed release (DR/EC) 20 mg PO DAILY 0RF Label Comments: TAKE ONE TABLET BY MOUTH DAILY lorazepam [Ativan] 0.5 mg tablet 0.5 mg PO DAILY PRN0RF Label Comments: 0.5 MG PO UD PRN 1 tab as needed for anxiety attack, has to last 12 months pravastatin 10 mg tablet 10 mg PO HS 0RF Label Comments: TAKE 1 TABLET AT BEDTIME losartan 25 mg tablet 25 mg PO NIGHTLY 0RF Label Comments: TAKE 1 TABLET BY MOUTH ONCE DAILY. acetaminophen 500 mg Tablet 500 - 1,000 mg PO Q6H MDD 4000 mg per day PRNQty: 100 0RF oxycodone 5 mg Tablet 2.5 - 5 mg PO Q4-6H PRN (Reason: Pain) Qty: 42 0RF Xarelto 10 mg Tablet 10 mg PO DAILY Qty: 4 0RF Rx Instructions: For DVT prophylaxis. Take this medication daily for 4 days, then aspirin 81 mg twice daily for 30 days. sennosides [Senna Lax] 8.6 mg Tablet 17.2 mg PO BID PRNQty: 100 0RF Rx Instructions: For narcotic related constipation aspirin 81 mg tablet,chewable 81 mg PO BID 30 Days Qty: 60 2RF ondansetron HCl 4 mg tablet 4 mg PO TID-QID PRN (Reason: nausea and vomiting) Qty: 30 0RF Follow Up/Referrals: Sol Crawford MD [Primary Care Provider] -
[2022-04-26 21:13] LABS: Appearance Urine Clear (Clear); Bilirubin Urine Negative (Negative); Blood Urine Trace-intact (Negative); Color Urine Yellow (Yellow); Glucose Urine Negative (Negative); Ketones Urine 2+ (Negative); Leukocyte Esterase Urine Negative (Negative); Nitrite Urine Negative (Negative); Protein Urine 1+ (Negative); Specific Gravity Urine 1.015 (1.000-1.030); Urobilinogen Urine 0.2 (0.2-1.0); pH Urine 6.5 (5.0-8.5)
[2022-04-26 21:30] VITALS: BP 131/78; PULSE 87; RESP 16; O2SAT 98
[2022-04-26 21:41] LABS: WBC Urine 0-2 (0-5)
[2022-04-26 21:50] VITALS: PULSE 68; RESP 16; TEMP 37.2
== END 2022-04-26 22:02 | disposition home or self-care (01) ==
PROVIDERS: Emergency Provider Emergency Medicine; PCP Family Medicine
DX: T84.84XA Pain due to internal orthopedic prosthetic devices, implants and grafts, initial encounter (principal); Z96.642 Presence of left artificial hip joint; G35 Multiple sclerosis
CPT/HCPCS: 36415; 73502; 80048; 81001; 83605; 85025; 86140; 96374; 96375; 99284; J2270

== ENCOUNTER 2022-04-28 18:41 | Emergency (ER) | payer MEDICARE, OTHER, SELFPAY ==
[2022-04-28 18:49] VITALS: BP 172/84; PULSE 88; RESP 18; TEMP 36.6; O2SAT 96; BMI 26.9
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
[2022-04-28] MEDS: ONDANSETRON 2 MG/ML inj 4 MG IVP (19:16)
[2022-04-28] MEDS: 0.9 % SODIUM CHLORIDE 500 ML 500 ML IV (19:16)
[2022-04-28] MEDS: HYDROmorphone 0.5 mg/0.5 ml inj IVP ×2 (19:16→20:40)
[2022-04-28] MEDS: METOCLOPRAMIDE HCL 5 MG/ML INJ 10 MG IVP (19:59)
[2022-04-28 20:20] VITALS: BP 163/86; PULSE 92; RESP 16; O2SAT 98
[2022-04-28 21:00] VITALS: BP 128/73; PULSE 101; RESP 16; O2SAT 94
[2022-04-28] MEDS: diazePAM 5 MG/ML inj IV (21:01)
[2022-04-28 21:30] VITALS: BP 122/70; PULSE 91; RESP 16; O2SAT 98
[2022-04-28 22:00] VITALS: BP 118/68; PULSE 86; RESP 16; O2SAT 94
== END 2022-04-28 22:29 | disposition home or self-care (01) ==
PROVIDERS: Emergency Provider Emergency Medicine Emergency Medical Services; PCP Family Medicine
DX: G89.18 Other acute postprocedural pain (principal); R11.2 Nausea with vomiting, unspecified; Z96.642 Presence of left artificial hip joint
CPT/HCPCS: 96374; 96375; 96376; 99284; J1170; J2405; J2765; J3360; J7120

== ENCOUNTER 2022-05-10 14:22 | Outpatient (CLI) | payer MEDICARE, SELFPAY ==
[2022-05-10 17:23] LABS: Albumin* 3.5 g/dL (3.3-5.0); Chloride* 96 mmol/L (96-114)
[2022-05-10 17:24] LABS: Sodium* 128 mmol/L (135-149)
[2022-05-10 17:26] LABS: Alkaline Phosphatase* 111 U/L (40-150); Aspartate Amino Transferase* 27 U/L (12-35); Bilirubin Total* 0.2 mg/dL (0.1-1.5); Blood Urea Nitrogen* 11 mg/dL (7-30); Carbon Dioxide* 24 mmol/L (20-32); Creatinine* 0.6 mg/dL (0.5-1.5); Estimated Glomerular Filt Rate 97 ml/min; Total Protein* 6.2 g/dL (6.0-8.3)
[2022-05-10 17:27] LABS: Alanine Aminotransferase* 20 U/L (4-35); Calcium* 8.7 mg/dL (8.4-10.6); Glucose* 109 mg/dL (60-115)
== END 2022-05-10 14:23 | disposition home or self-care (01) ==
PROVIDERS: PCP Family Medicine; Visit Provider Family Medicine
DX: K59.00 Constipation, unspecified (principal); K30 Functional dyspepsia
CPT/HCPCS: 80053

== ENCOUNTER 2022-06-04 15:00 | Outpatient (RCR) | payer MEDICARE, OTHER, SELFPAY | END 2022-08-12 14:33 | disposition home or self-care (01) | PROVIDERS: PCP Family Medicine; Visit Provider Orthopaedic Surgery | DX: M25.552 Pain in left hip (principal); M16.12 Unilateral primary osteoarthritis, left hip; Z51.89 Encounter for other specified aftercare | CPT/HCPCS: 80048; 87493; 97110; 97164 ==

== ENCOUNTER 2022-06-05 16:01 | Outpatient (CLI) | payer MEDICARE, OTHER, SELFPAY ==
[2022-06-05 17:44] LABS: Albumin* 4.1 g/dL (3.3-5.0); Chloride* 96 mmol/L (96-114)
[2022-06-05 17:45] LABS: Potassium* 4.5 mmol/L (3.6-5.1); Sodium* 131 mmol/L (135-149)
[2022-06-05 17:47] LABS: Aspartate Amino Transferase* 21 U/L (12-35); Bilirubin Total* 0.2 mg/dL (0.1-1.5); Blood Urea Nitrogen* 13 mg/dL (7-30); Carbon Dioxide* 26 mmol/L (20-32); Creatinine* 0.7 mg/dL (0.5-1.5); Estimated Glomerular Filt Rate 94 ml/min; Total Protein* 6.8 g/dL (6.0-8.3)
[2022-06-05 17:48] LABS: Alanine Aminotransferase* 12 U/L (4-35); Alkaline Phosphatase* 81 U/L (40-150); Calcium* 9.4 mg/dL (8.4-10.6); Glucose* 119 mg/dL (60-115)
[2022-06-05 18:19] LABS: TSH With Reflex to FT4* 0.537 uIU/mL (0.270-4.200)
== END 2022-06-05 16:02 | disposition home or self-care (01) ==
PROVIDERS: PCP Family Medicine; Visit Provider Family Medicine
DX: Z98.890 Other specified postprocedural states (principal); R10.13 Epigastric pain; R53.83 Other fatigue; E78.5 Hyperlipidemia, unspecified; I10 Essential (primary) hypertension
CPT/HCPCS: 80053; 84443

== ENCOUNTER 2022-06-13 15:46 | Outpatient (CLI) | payer MEDICARE, OTHER, SELFPAY ==
[2022-06-13 09:12] LABS: Albumin* 3.9 g/dL (3.3-5.0)
[2022-06-13 09:13] LABS: Potassium* 4.6 mmol/L (3.6-5.1); Sodium* 135 mmol/L (135-149)
[2022-06-13 09:17] LABS: HDL Cholesterol* 74 mg/dL (>=50); LDL Cholesterol Calculated 111 mg/dL (<100)
[2022-06-13 09:24] LABS: Chloride* 102 mmol/L (96-114)
[2022-06-13 09:27] LABS: Alanine Aminotransferase* 10 U/L (4-35); Alkaline Phosphatase* 83 U/L (40-150); Bilirubin Total* 0.3 mg/dL (0.1-1.5); Carbon Dioxide* 25 mmol/L (20-32); Glucose* 114 mg/dL (60-115)
[2022-06-13 09:28] LABS: Aspartate Amino Transferase* 20 U/L (12-35); Blood Urea Nitrogen* 11 mg/dL (7-30); Calcium* 9.4 mg/dL (8.4-10.6); Creatinine* 0.7 mg/dL (0.5-1.5); Estimated Glomerular Filt Rate 94 ml/min; Total Protein* 6.6 g/dL (6.0-8.3)
[2022-06-13 09:29] LABS: Cholesterol* 210 mg/dL (90-199); Triglycerides* 127 mg/dL (40-149)
== END 2022-06-13 15:47 | disposition home or self-care (01) ==
PROVIDERS: PCP Family Medicine; Visit Provider Family Medicine
DX: E78.5 Hyperlipidemia, unspecified (principal); E87.1 Hypo-osmolality and hyponatremia; I10 Essential (primary) hypertension
CPT/HCPCS: 80053; 80061

== ENCOUNTER 2022-06-25 14:51 | Outpatient (CLI) | payer MEDICARE, OTHER, SELFPAY ==
--- NOTE | 2022-06-25 15:00 | CRLHL7_ITS ---
For Patients: As a result of the Century Cures Act, medical imaging exams and procedure reports are released immediately into your electronic medical record. You may view this report before your referring provider. If you have questions, please contact your health care provider. Indication: FOLLOW UP LUNG NODULE Technique: Noncontrast CT chest Please note that all CT scans at this facility use dose modulation, iterative reconstruction, and/or weight-based dosing when appropriate to reduce radiation dose to as low as reasonably achievable. Comparison: 08/02/2020 Findings: Thyroid appears similar. No adenopathy. Hiatal hernia. Upper abdomen unremarkable. Mild vascular calcifications. Breast tissue normal. Stable 2 millimeter right upper lobe nodule, 3/35. Stable 5 millimeter nodule right lower lobe, 3/56. Mild fibrotic change within the right lower lobe laterally. 2 millimeter nodule left upper lobe, 3/35. No infiltrate or edema. No effusion or pneumothorax. No fracture. Impression: Stable 5 millimeter right lower lobe pulmonary nodule. Please note that all CT scans at this facility use dose modulation, iterative reconstruction, and/or weight-based dosing when appropriate to reduce radiation dose to as low as reasonably achievable. Dictated by Jasper Correa MD @ 06/25/2022 4:02:33 PM (Electronically Signed)
== END 2022-06-25 14:52 | disposition home or self-care (01) ==
PROVIDERS: PCP Family Medicine; Visit Provider Family Medicine
DX: R91.1 Solitary pulmonary nodule (principal)
CPT/HCPCS: 71250

== ENCOUNTER 2022-07-12 16:01 | Outpatient (CLI) | payer MEDICARE, OTHER, SELFPAY ==
[2022-07-12 17:41] LABS: Cholesterol* 184 mg/dL (90-199)
[2022-07-12 17:42] LABS: HDL Cholesterol* 72 mg/dL (>=50); LDL Cholesterol Calculated 88 mg/dL (<100); Triglycerides* 119 mg/dL (40-149)
== END 2022-07-12 16:02 | disposition home or self-care (01) ==
PROVIDERS: PCP Family Medicine; Visit Provider Family Medicine
DX: E78.5 Hyperlipidemia, unspecified (principal)
CPT/HCPCS: 80061

== ENCOUNTER 2022-08-19 14:35 | Outpatient (CLI) | payer MEDICARE, OTHER, SELFPAY ==
--- NOTE | 2022-08-19 14:40 | CRLHL7_ITS ---
For Patients: As a result of the Century Cures Act, medical imaging exams and procedure reports are released immediately into your electronic medical record. You may view this report before your referring provider. If you have questions, please contact your health care provider. BILATERAL SCREENING MAMMOGRAM WITH COMPUTER-AIDED DETECTION TECHNIQUE: CC and MLO views were obtained. These mammographic images have been obtained using full-field digital technique. These mammographic images were interpreted with the benefit of computer-aided detection. COMPARISON FILM: 05/08/21, 04/26/20, 02/25/19. FINDINGS: There are scattered areas of fibroglandular density IMPRESSION: There is no radiographic evidence for malignancy. ASSESSMENT: BI-RADS Category 1: Negative RECOMMENDATION: Routine screening mammogram in 1 year. A lay language report of this examination will be provided to the patient. Yogesh Lenz M.D. Diagnostic/Nuclear Medicine Radiologist [email or web address] Transcribed: 3:15 p.m. ORI/Dictated by: Yogesh Lenz MD @ 08/20/2022 8:18:00 AM (Electronically Signed)
--- OUTSIDE RECORDS SUMMARY | 2022-08-19 15:03 | XMS_ITS | Clinical Summary ---
:1950 Author Organization [email or web address] [place] [address] Care Team Providers Name Role Phone Health, Family Primary Care Provider Unavailable Allergies Active Allergy Reactions Severity Noted Date Comments Lisinopril Cough 02/27/2016 2013 - started by renal Medications Medication Sig Dispensed Refills Start Date End Date Status VITAMIN D 1,000 UNIT CAP Once daily 0 02/28/2009 Active FISH OIL 1,000 MG CAP 2 daily 0 02/28/2009 Active GREGG'S WORT 300 MG Once daily 0 02/28/2009 Active CAP betamethasone Apply topically 1 Tube 0 09/27/2014 Active dipropionate 0.05% to affected (DIPROSONE 0.05% area(s) 2 times OINTMENT) 0.05 % daily. Check ointmentIndications: with patient Chapped skin regarding paredes hydrochlorothiazide Take 1 tablet by 90 tablet 3 02/27/2016 Active (HCTZ) 25 mg mouth once tabletIndications: HTN daily. (hypertension) LORazepam (ATIVAN) 0.5 mg Take 1 tablet by 30 tablet 2 016 Active tabIndications: Routine mouth at bedtime general medical if needed, may examination at a health repeat once. care facility medication order Estriol 0.3% 30 g 4 02/27/2016 Active composerIndications: cream. Apply 1 Postmenopausal atrophic applicator twice vaginitis weekly, aspirin (ECOTRIN) 81 mg Take 1 tablet by 90 tablet 3 6 Active enteric coated mouth once daily tabletIndications: HTN with a meal. (hypertension) pravastatin (PRAVACHOL) Take 1 tablet by 90 tablet 3 6 Active 20 mg tabletIndications: mouth at Mixed hyperlipidemia bedtime. Increased dose - not needing fill now losartan (COZAAR) 25 mg TAKE 1 TABLET BY 90 tablet 0 7 Active tabletIndications: HTN MOUTH ONCE (hypertension) DAILY. zolpidem (AMBIEN) 10 mg Take 10 mg by 0 05/02/2021 Active tablet mouth at bedtime. pantoprazole (PROTONIX) Take 20 mg by 0 02/17/2022 Active 20 mg tablet mouth once daily. amLODIPine (NORVASC) 5 mg Take 5 mg by 0 01/15/2022 Active tablet mouth once daily. 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, 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 Resolved Problems Problem Noted Date Resolved Date health maintenance 04/06/2008 12/17/2012 Overview: Colonoscopy 04/2006, normal, recommend r echeck in 2010 Immunizations Name Administration Dates Next Due Td (Age >=7 Years) 01/29/1998 Tdap 04/06/2008 Family History Medical History Relation Name Comments Diabetes Father Cancer-colon Maternal Uncle not sure if mat or pat uncle Hypertension Mother Stroke Mother Cancer-breast No Family History Relation Name Status Comments Father (Age 83) emphysema Maternal Uncle Mother (Age 86) stroke after a fall Social History Tobacco Use Types Packs/Day Years Used Date Current Some Day Smoker Quit : 2011 Smokeless Tobacco: Never Used Tobacco Cessation: Ready to Quit: No; Co unseling Given: Yes Comments: 3-4 cigarettes Alcohol Use Standard Drinks/Week Comments No 0 (1 standard drink = 0.6 oz pure alcoho l) Sex Assigned at Date Recorded Not on file Obstetrics History Para Term AB IAB SAB Ectopic Multiple Living Live Births 2 2 2 Date Outcome GA Total Labor/2nd/3rd Weight Sex Delivery Anes PTL Nevin A 1 A5 Name Clin Labor Para Para Last Filed Vital Signs Vital Sign Reading Time Taken Comments Blood Pressure 146/84 03/01/2022 12:22 PM CDT Pulse 72 03/01/2022 11:44 AM CDT Temperature 37.2 ??C (98.9 ??F) 03/01/2022 11:44 AM CDT Respiratory Rate - - Oxygen Saturation 98% 03/01/2022 11:44 AM CDT Inhaled Oxygen Concentration - - Weight 66.6 kg (146 lb 12.8 oz) 03/01/2022 11:44 AM CDT Height 157.7 cm (5' 2.09) 03/01/2022 11:44 AM CDT Body Mass Index 26.77 03/01/2022 11:44 AM CDT Plan of Treatment Health Maintenance Due Date Last Done Comments Pneumococcal series for age 65+ (1 1958 - PCV) Zoster (shingles) series for age 0110/20/2002 50+ (1 of 2) Depression screening for age 12+ 02/26/2017 02/27/2016 DEXA/DXA scan for age 65+ 2017 04/07/2008 Medicare Wellness for age 65+ 2017 Tetanus booster 04/06/2018 04/06/2008, 01/29/1998 Mammogram for age 45-75 02/26/2020 02/25/2019, 02/23/2016, 02/10/2015, Additional history exists Lipids for age 45-75 06/26/2021 06/26/2016, 02/23/2016, 02/10/2015, Additional history exists COVID-19 vaccine series (4 - 10/03/2021 08/08/2021, 021, Booster for Moderna series) 11/09/2020 Influenza for age 65+ 06/13/2022 BMI (ht and wt on same day) for 03/01/2023 03/01/2022, 02/10 age 18+ Colonoscopy through age 75 04/09/2023 04/09/2018, 8, 04/09/2018, Additional history exists Tdap Completed 04/06/2008 Hepatitis C screening for age Completed 02/09/2014 20-79 Results Not on filefrom Last 3 Months Insurance Payer Benefit Plan / Subscriber ID Effective Dates Phone Addre ss Type Group MEDICA MR MEDICA PRIME [id number] 2017-Present [address] [address] [employer] [place] , [facility] [id number] 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
== END 2022-08-19 14:36 | disposition home or self-care (01) ==
LOC: MAMMO 14:36
PROVIDERS: PCP Family Medicine; Visit Provider Family Medicine
DX: Z12.31 Encounter for screening mammogram for malignant neoplasm of breast (principal)
CPT/HCPCS: 77063; 77067

== ENCOUNTER 2022-09-16 13:35 | Outpatient (CLI) | payer MEDICARE, OTHER, SELFPAY ==
--- OUTSIDE RECORDS SUMMARY | 2022-09-16 13:37 | XMS_ITS | Clinical Summary ---
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
--- NOTE | 2022-09-16 13:45 | CRLHL7_ITS ---
For Patients: As a result of the Century Cures Act, medical imaging exams and procedure reports are released immediately into your electronic medical record. You may view this report before your referring provider. If you have questions, please contact your health care provider. Indication: Weakness, paresthesias. Technique: Multiplanar, multisequence MRI of the brain was performed without and with intravenous contrast. Contrast: 15 cc Dotarem. Comparison: MRI cervical and thoracic spine the same day. Findings: There are overall greater than 15 periventricular and juxta cortical white matter lesions. Several of these lesions are oriented perpendicular to the corpus callosum. There is involvement of the colossal septal interface. Minimal infratentorial white matter disease. Mild T1 hypointense lesion load. Slight thinning of the corpus callosum. The pituitary gland and carpus appear intact. Degenerative changes visualized upper cervical spine. There is no restricted diffusion. No intracranial hemorrhage. The ventricles are proportionate to the cerebral sulci. The 4th ventricle appears midline. The basal cisterns appear patent. No abnormal extra-axial fluid collection identified. There is no intracranial mass, abnormal mass-effect or midline shift identified. No abnormal lesional enhancement. Right temporal developmental venous anomaly. Major intracranial vascular flow voids appear grossly intact. Both globes are preserved. Impression: 1. Overall greater than 15 supratentorial white matter lesions with imaging features suggestive of demyelinating disease such as multiple sclerosis. Findings may also be superimposed upon chronic ischemic microvascular disease. 2. No abnormal enhancement to suggest an active lesion. 3. No acute/subacute infarct. 4. Mild parenchymal volume loss and corpus callosum atrophy. Mild T1 hypointense lesion load. Dictated by Robin Brink MD @ 09/16/2022 4:27:45 PM (Electronically Signed)
--- NOTE | 2022-09-16 14:30 | CRLHL7_ITS ---
For Patients: As a result of the Century Cures Act, medical imaging exams and procedure reports are released immediately into your electronic medical record. You may view this report before your referring provider. If you have questions, please contact your health care provider. Indication: Weakness, paresthesias. Technique: MRI of the cervical spine was performed without and with the use of intravenous contrast. Contrast: 15 cc Dotarem. Comparison: MR brain and thoracic spine the same day. Findings: The cervical vertebral body heights appear maintained without evidence of fracture. Mild multilevel disc height loss and desiccation, moderate at C6-7. Peripheral abnormal T2 signal involving the dorsal cord at the C3-4 level (Series 5, image 12) no definite additional foci of abnormal cord signal. There is no abnormal enhancement. C2-3: No spinal canal or neural foraminal narrowing. C3-4: No spinal canal narrowing. Mild neural foraminal narrowing secondary to uncovertebral and facet hypertrophy. C4-5: No spinal canal or neural foraminal narrowing. C5-6: Mild disc bulge without spinal canal narrowing. Mild to moderate right and mild left neural foraminal narrowing secondary to uncovertebral and facet hypertrophy. C6-7: Disc osteophyte complex with mild spinal canal narrowing. Severe left and moderately severe right neural foraminal narrowing secondary to uncovertebral and facet hypertrophy. Potential impingement of the C7 nerves. C7-T1: No spinal canal or neural foraminal narrowing. Impression: 1. Solitary focus of abnormal cord signal at the C3-4 level, concerning for a chronic demyelinating plaque. 2. No abnormal enhancement to suggest an active process. 3. At C6-7, mild spinal canal with severe left and moderately severe right neural foraminal narrowing. Potential impingement of the C7 nerves. 4. At C5-6, mild to moderate right and mild left neural foraminal narrowing. 5. At C3-4, mild neural foraminal narrowing. Dictated by Robin Brink MD @ 09/16/2022 4:32:08 PM (Electronically Signed)
--- NOTE | 2022-09-16 15:30 | CRLHL7_ITS ---
For Patients: As a result of the Century Cures Act, medical imaging exams and procedure reports are released immediately into your electronic medical record. You may view this report before your referring provider. If you have questions, please contact your health care provider. Indication: Weakness, paresthesias. Technique: Multiplanar, multisequence MRI of the thoracic spine was performed without and with the use of 15 cc Dotarem intravenous contrast. Comparison: MRI cervical spine and brain the same day. Findings: The thoracic vertebral body heights appear maintained without evidence of fracture. Mild exaggerated thoracic kyphosis. Mild multilevel disc height loss and desiccation. No abnormal cord signal. No abnormal enhancement. Mild spondylosis, without overt evidence of spinal canal or neuroforaminal compromise throughout the thoracic spine. Impression: 1. No abnormal cord signal or enhancement. 2. Mild spondylosis, without high-grade spinal canal or neural foraminal narrowing. Dictated by Robin Brink MD @ 09/16/2022 4:36:57 PM (Electronically Signed)
== END 2022-09-16 13:36 | disposition home or self-care (01) ==
LOC: MRI 13:36
PROVIDERS: PCP Family Medicine; Visit Provider Psychiatry & Neurology Neurology
DX: R53.1 Weakness (principal); R20.2 Paresthesia of skin; M47.894 Other spondylosis, thoracic region; M50.223 Other cervical disc displacement at C6-C7 level; M50.222 Other cervical disc displacement at C5-C6 level; M50.21 Other cervical disc displacement, high cervical region
CPT/HCPCS: 70553; 72156; 72157; A9575

== ENCOUNTER 2023-09-10 08:20 | Outpatient (CLI) | payer MEDICARE, OTHER, SELFPAY | END 2023-09-10 08:21 | disposition home or self-care (01) | LOC: NFLDREF 12:45 | PROVIDERS: PCP Family Medicine; Referring Provider Family Medicine; Visit Provider Family Medicine | DX: E78.5 Hyperlipidemia, unspecified (principal); I10 Essential (primary) hypertension; E55.9 Vitamin D deficiency, unspecified; R73.01 Impaired fasting glucose; R63.4 Abnormal weight loss | CPT/HCPCS: 80053; 80061; 82306 ==

== ENCOUNTER 2023-09-11 10:20 | Outpatient (CLI) | payer MEDICARE, OTHER, SELFPAY | END 2023-09-11 10:21 | disposition home or self-care (01) | PROVIDERS: PCP Family Medicine; Visit Provider Family Medicine | DX: Q87.2 Congenital malformation syndromes predominantly involving limbs (principal) | CPT/HCPCS: 87086 ==

== ENCOUNTER 2023-11-27 13:39 | Outpatient (CLI) | payer MEDICARE, OTHER, SELFPAY ==
--- OUTSIDE RECORDS SUMMARY | 2023-11-27 13:49 | XMS_ITS | Clinical Summary ---
Author Name Unknown Organization [facility] Address [place], [place] [address] Care Team Providers Care Early Childhood Education Specialist Name Role Phone Health, Family Primary Care Provider Unavailabl e Allergies Active Allergy Reactions Criticality Noted Date Comments Lisinopril Cough 02/27/2016 2013 - started by renal Medications Medication Sig Dispensed Refills Start Date End Date Status VITAMIN D 1,000 UNIT CAP Once daily 0 02/28/2009 Active FISH OIL 1,000 MG CAP 2 daily 0 02/28/2009 Act tara GREGG'S WORT 300 MG CAP Once daily 0 02/28/2009 Active betamethasone dipropionate 0.05% (DIPROSONE 0.05% OINTMENT) 0.05 % ointmentIndications:C happed skin Apply topically to affected area(s) 2 times daily. Check with patient regarding paredes 1 Tube 0 09/27/2014 Active hydrochlorothiazide (HCTZ) 25 mg tabletIndications:HTN (hypertension) Take 1 tablet by mouth once daily. 90 tablet 3 02/27/2016 Active LORazepam (ATIVAN) 0.5 mg tabIndications:Routin e general medical examination at a health care facility Take 1 tablet by mouth at bedtime if needed, may repeat once. 30 tablet 2 02/27/2016 Active medication order composerIndications:P ostmenopausal atrophic vaginitis Estriol 0.3% cream. Apply 1 applicator twice weekly, 30 g 4 02/27/2016 Active aspirin (ECOTRIN) 81 mg enteric coated tabletIndications:HTN (hypertension) Take 1 tablet by mouth once daily with a meal. 90 tablet 3 02/27/2016 Active pravastatin (PRAVACHOL) 20 mg tabletIndications:Mix ed hyperlipidemia Take 1 tablet by mouth at bedtime. Increased dose - not needing fill now 90 tablet 3 04/22/2016 Active losartan (COZAAR) 25 mg tabletIndications:HTN (hypertension) TAKE 1 TABLET BY MOUTH ONCE DAILY. 90 tablet 0 01/19/2017 Active zolpidem (AMBIEN) 10 mg tablet Take 10 mg by mouth at bedtime. 0 05/02/2021 Active pantoprazole (PROTONIX) 20 mg tablet Take 20 mg by mouth once daily. 0 02/17/2022 Active amLODIPine (NORVASC) 5 mg tablet Take 5 mg by mouth once daily. 0 01/15/2022 Active Active Problems Problem Noted Date Diagnosed Date Bilateral impacted cerumen 02/21/2015 Impaired fasting glucose 12/23/2012 Routine general medical exam ination at a health care facility 12/23/2012 Overview: dexa 2007, only one value -1.2, Recheck age 67 Family history of malignant neoplasm of gastrointestinal tract 06/07/2011 Overview: Colonoscopy 05/2011 diverticulosis repeat in 5 years Colonoscopy 03/2018 diverticulosis, repeat in 5 years Cystocele, midline 09/07/2010 HTN (hypertension) 11/01/2009 Mixed hyperlipidemia 03/28/2009 Multiple sclerosis Overview: no meds, doing well 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, 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 Resolved Problems Problem Noted Date Diagnosed Date Resolved Date health maintenance 04/06/2008 3 Overview: Colonoscopy 04/2006, normal, recommend recheck in 2010 Immunizations Name Administration Dates Next Due Td (Age >=7 Years) 01/29/1998 Tdap 04/06/2008 Family History Medical History Relation Name Comments Diabetes Father Cancer-colon Maternal Uncle not sure if m at or pat uncle Hypertension Mother Stroke Mother Cancer-breast No Family History Relation Name Status Comments Father (Age 83) emphysema Maternal Uncle Mother (Age 86) stroke aft er a fall Social History Tobacco Use Types Packs/Day Years Used Date Smoking Tobacco: Some Days Cigarettes Last attempted to quit: 2011 Smokeless Tobacco: Never Tobacco Cessation:Ready to Q uit: No; Counseling Given: Yes Comments:3-4 cigarettes Alcohol Use Standard Drinks/Week Comments No 0 (1 standard drink = 0.6 oz pur e alcohol) Social Connections Answer Date Recorded Frequency of Communication with Friends and Fami ly Not on file 03/01/2022 Sex and Gender Information Value Date Recorded Sex Assigned at Not on file Gender Identity Not on file Sexual Orientation Not on file Obstetrics History Para Term AB IAB SAB Ectopic Multiple Livin g Live Births 2 2 2 Date Outcome GA Total Labor Labor/2nd/3rd Weight Sex Delivery Anes PTL Nevin A1 A5 Name Cl in Para Para Last Filed Vital Signs Vital Sign Reading Time Taken Comments Blood Pressure 146/84 03/01/2022 12:22 PM CDT Pulse 72 03/01/2022 11:44 AM CDT Temperature 37.2 ??C (98.9 ??F) 03/01/2022 1 1:44 AM CDT Respiratory Rate - - Oxygen Saturation 98% 03/01/2022 11: 44 AM CDT Inhaled Oxygen Concentration - - Weight 66.6 kg (146 lb 12.8 oz) 022 11:44 AM CDT Height 157.7 cm (5' 2.09) 03/01/2022 1 1:44 AM CDT Body Mass Index 26.77 03/01/2022 11:44 AM CDT Plan of Treatment Health Maintenance Due Date Last Done Comments Pneumococcal series for age 65+ (1 of 2 - PCV) 1958 Zoster (shingles) series for age 50+ (1 of 2) 2002 Depression screening for age 12+ 02/26/2017 02/27/20 16 DEXA/DXA scan for age 65+ 2017 04/07/2008 Medicare Wellness for age 65+ 2017 Tetanus booster 04/06/2018 04/06/2008, 01/29/1998 Mammogram for age 45-75 02/26/2020 02/26/20 19, 02/23/2016, 02/10/2015, Additional history exists Lipids for age 45-75 06/26/2021 06/26/2016, 02/23/2016, 02/10/2015, Additional history exists BMI (ht and wt on same day) for age 18+ 03/01/2023 03/01/2022, 02/27/2016 Colonoscopy through age 75 04/09/202304/09, 04/09/2018, 04/09/2018, Additional history exists COVID-19 vaccine series ( season) 2023 08/08/2021, 12/07/2020, 11/09/2020 Influenza for age 65+ 06/13/2023 Tdap Completed 04/06/2008 Hepatitis C screening for ag e 18-79 Completed 02/09/2014 Care Teams Early Childhood Education Specialist Relationship Specialty Start Date End Date Health, Family PCP - General 03/11/17
--- NOTE | 2023-11-27 14:00 | XR_ITS ---
Patient: LAKISHA BREWSTER Facility:?[facility] Patient ID:?[id number] Site Patient ID:?[id number] Site :?1950 Study:?DEXA-Bone Density SPINE/ RT HIP-11/27/2023 2:12:06 PM Ordering Physician:MARY Final Report: DXA BONE MINERAL DENSITY STUDY Reason for exam: Osteopenia. Current height (in): 62. Weight (lb): 125. Menopause age: 58. Ethnicity: White. 1. Have you had a previous hip or vertebral fracture? No. 2. Have you had any fractures during your adult life which did not result from significant trauma (e.g., auto accident)? No. 3. Did either of your parents have a hip fracture? No. 4. Do you smoke? No. 5. Have you ever taken Glucocorticoids? No. 6. Do you have rheumatoid arthritis? No. 7. Do you have secondary osteoporosis? No. 8. Do you drink 3 or more alcoholic drinks per day? No. 9. Are you being treated for osteoporosis? No. 10. Have you ever taken any of the following medications: Actonel, Evista, Fosamax, Miacalcin, Reclast, Boniva, Forteo, HRT (i.e., estrogen/hormone therapy), Protelos, Prolia, Vitamin D, Calcium, other ? please specify. ANSWER: Yes, vitamin D. 11. Do you have any of the following medical conditions: Anorexia or bulimia, asthma or emphysema, end stage renal disease, hyperparathyroidism, any seizure disorders, cancer, inflammatory bowel diseases, hysterectomy, other ? please specify. ANSWER: Yes, hysterectomy. 12. What was your maximum height (inches)? 62. 13. Do you perform weight bearing exercise regularly? No. 14. Do you regularly consume dairy products? Yes. 15. Do you drink caffeinated beverages? Yes. If female: 16. At what age did your period start? 17. 17. Are you premenopausal? No. 18. How many full-term pregnancies have you had? 2. 19. Have you ever missed your period for more than 6 months in a row (not including or menopause)? No. TECHNIQUE: Bone mineral density study was performed using the [employer]. FINDINGS: The results of the study expressed as bone mineral density (BMD) are as follows: Lumbar spine L1 to L4: BMD: 0.893 g/cm2. T-score: -1.4. Z-score: 0.8 Neck Right: BMD: 0.596 g/cm2. T-score: -2.3. Z-score: -0.4 Total Right: BMD: 0.780 g/cm2. T-score: -1.3. Z-score: 0.2 IMPRESSION: Osteopenia. *Comparison exams done prior to 03/2020 were performed on different unit, [employer]. COMPARISON: Compared with scan of 05/03/2020, the bone mineral density has decreased by 10.0 percent at the spine and decreased by 4.9 percent at the hip. FRAX 10-year Fracture Risk Major Osteoporotic Fracture: 13 % Hip Fracture: 3,9 % Reported Risk Factors: [place] () Neck BMD=0.596, BMI=22.9 Dictated by: Jasper Correa MD @12/02/2023 8:23:17 AM jj/Dictated by: Jasper Correa MD @ 12/02/2023 8:23:00 AM Signed by:?Jasper Correa MD @12/07/2023 6:25:46 AM (Electronic Signature)
--- NOTE | 2023-11-27 14:40 | MM_ITS ---
Final Report Patient: LAKISHA BREWSTER Facility:?[facility] Patient ID:?[id number] Site Patient ID:?[id number]. Site :?1950 Study:?XRay Breast Bilateral 3D W/CAD-11/27/2023 7:41:46 AM Ordering Physician:Nitin Final Report: BILATERAL DIGITAL TOMOSYNTHESIS SCREENING MAMMOGRAM WITH COMPUTER-AIDED DETECTION CLINICAL HISTORY: Routine screening exam. COMPARISON: 08/19/2022, 05/08/2021, 04/26/2020 TECHNIQUE: Digital tomosynthesis mammogram in CC and MLO projections including computer- aided detection (CAD). BREAST COMPOSITION: Scattered fibroglandular densities. FINDINGS: RIGHT Breast: Normal breast tissue. No masses or achritectural distortion. No suspicious calcifications or adenopathy. LEFT Breast: Normal breast tissue. No masses or achritectural distortion. No suspicious calcifications or adenopathy. IMPRESSION: No suspicious findings. RECOMMENDATIONS: Annual bilateral screening mammography. BI-RADS category 1. Negative. Dictated by Jasper Correa MD @ 11/28/2023 8:41:08 AM (Electronic Signature)
== END 2023-11-27 13:40 | disposition home or self-care (01) ==
LOC: RAD 13:39
PROVIDERS: PCP Family Medicine; Visit Provider Family Medicine
DX: Z12.31 Encounter for screening mammogram for malignant neoplasm of breast (principal); M85.80 Other specified disorders of bone density and structure, unspecified site; M85.88 Other specified disorders of bone density and structure, other site; Z78.0 Asymptomatic menopausal state
CPT/HCPCS: 77063; 77067; 77080

== ENCOUNTER 2024-07-20 06:37 | Outpatient (CLI) | payer MEDICARE, OTHER, SELFPAY ==
--- OUTSIDE RECORDS SUMMARY | 2024-07-20 06:39 | XMS_ITS | Clinical Summary ---
Author Organization [facility] Address [place], [place] [address] Care Team Providers Care Grill Attendant Name Role Phone Sol Crawford MD Primary Care Provider + Allergies Active Allergy Reactions Criticality Noted Date Comments Lisinopril Cough 02/27/2016 2013 - started by renal Medications Medication Sig Dispensed Refills Start Date End Date Status VITAMIN D 1,000 UNIT CAP Once daily 02/28/2009 Active FISH OIL 1,000 MG CAP Take 1 Capsule by mouth once daily. 02/28/2009 Active GREGG'S WORT 300 MG CAP Once daily 02/28/2009 Active betamethasone dipropionate 0.05% (DIPROSONE 0.05% OINTMENT) 0.05 % ointmentIndications:Ch apped skin Apply topically to affected area(s) 2 times daily. Check with patient regarding paredes 1 Tube 0 09/27/2014 Active hydrochlorothiazide (HCTZ) 25 mg tabletIndications:HTN (hypertension) Take 1 tablet by mouth once daily. 90 tablet 3 02/27/2016 Active LORazepam (ATIVAN) 0.5 mg tabIndications:Routine general medical examination at a health care facility Take 1 tablet by mouth at bedtime if needed, may repeat once. 30 tablet 2 02/27/2016 Active medication order composerIndications:Po stmenopausal atrophic vaginitis Estriol 0.3% cream. Apply 1 applicator twice weekly, 30 g 4 02/27/2016 Active aspirin (ECOTRIN) 81 mg enteric coated tabletIndications:HTN (hypertension) Take 1 tablet by mouth once daily with a meal. 90 tablet 3 02/27/2016 Active pravastatin (PRAVACHOL) 20 mg tabletIndications:Mixe d hyperlipidemia Take 1 tablet by mouth at bedtime. Increased dose - not needing fill now 90 tablet 3 04/22/2016 Active losartan (COZAAR) 25 mg tabletIndications:HTN (hypertension) TAKE 1 TABLET BY MOUTH ONCE DAILY. 90 tablet 01/19/2017 Active zolpidem (AMBIEN) 10 mg tablet Take 10 mg by mouth at bedtime. 05/02/2021 Active pantoprazole (PROTONIX) 20 mg tablet Take 20 mg by mouth once daily. 02/17/2022 Active amLODIPine (NORVASC) 5 mg tablet Take 5 mg by mouth once daily. 01/15/2022 Active polyethylene glycol-electrolyte (GOLYTELY) 236-22.74-6.74 -5.86 gram suspensionIndications: Family history of malignant neoplasm of gastrointestinal tract Drink 2 liters the day before colonoscopy and 2 liters 6 hours before colonoscopy appointment 4000 mL 04/05/2024 Active Active Problems Problem Noted Date Diagnosed Date Bilateral impacted cerumen 02/21/2015 Impaired fasting glucose 12/23/2012 Routine general medical exam ination at a health care facility 12/23/2012 Overview (12/23/2012): dexa 2007, only one value -1.2, Recheck age 67 Family history of malignant neoplasm of gastrointestinal tract 06/07/2011 Overview (04/09/2018): Colonoscopy 05/2011 diverticulosis repeat in 5 years Colonoscopy 03/2018 diverticulosis, repeat in 5 years Cystocele, midline 09/07/2010 HTN (hypertension) 11/01/2009 Mixed hyperlipidemia 03/28/2009 Multiple sclerosis Overview (12/27/2006): no meds, doing well Herpetic gingivostomatitis nail patella syndrome Overview (12/27/2006): hereditary osteo-onychodysplasia, 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 Resolved Problems Problem Noted Date Diagnosed Date Resolved Date health maintenance 04/06/2008 3 Overview (04/10/2010): Colonoscopy 04/2006, normal, recommend recheck in 2010 [...] Friends and Fami ly Not on file 04/14/2024 Sex and Gender Information Value Date Recorded Sex Assigned at Not on file Gender Identity Not on file Sexual Orientation Not on file Obstetrics History Para Term AB IAB SAB Ectopic Multiple Livin g Live Births 2 2 2 Date Outcome GA Total Labor Labor/2nd/3rd Weight Sex Type Anes PTL Nevin A1 A5 Name Clin Para Para Last Filed Vital Signs Vital Sign Reading Time Taken Comments Blood Pressure 124/78 04/14/2024 9:25 AM CDT Pulse 79 04/14/2024 9:25 AM CDT Temperature 37.2 ??C (98.9 ??F) 03/01/2022 1 1:44 AM CDT Respiratory Rate 16 04/14/2024 9:25 AM CDT Oxygen Saturation 93% 04/14/2024 9:25 AM CDT Inhaled Oxygen Concentration - - [...] day) for age 18+ 03/01/2023 03/01/2022, 02/27/2016 COVID-19 vaccine series ( season) 2024 07/28/2023, 08/09/2022, 08/08/2021, Additional history exists Influenza for age 65+ 06/13/2024 Colonoscopy through age 75 04/20/202904/20, 04/14/2024, 04/09/2018, Additional history exists Tdap Completed 04/06/2008 Hepatitis C screening for ag e 18-79 Completed 02/09/2014 Procedures Procedure Name Priority Date/Time Associated Diagnosis Comments COLONOSCOPY 04/14/2024 8:30 AM CDT Encounter for screening colonoscopy Family history of colon cancer XR MAMMO BILAT SCREENING Routine 02/25/2019 3:41 PM CDT Visit for screening mammogram LIPID PANEL W REFLEX MEASURED LDL Routine 06/26/2016 7:33 AM CDT Mixed hyperlipidemia ANTI HCV Routine 02/09/2014 7:23 AM CDT Need for hepatitis C screening test XR DXA BONE DENSITY 2 SITES AXIAL Routine 04/07/2008 8:48 AM CDT Screening Osteoporosis from Last 3 Months or Most Recently Relevant to Health Maintenance Results * COLONOSCOPY (04/14/2024 8:30 AM CDT) 04/14/2024 8:30 AM CDT Narrative Transcriptions Beto Shaffer MD - 04/14/2024 9:16 AM CDT Patient Name: Kenyatta Younger Procedure Date: 04/14/2024 Gender: Female Date of : 1950 Admit Type: Outpatient Procedure: Colonoscopy Proceduralist: Beto Shaffer MD , Zoila Daniel RN(Nurse), Marta Garg (Nurse) Indications/Pre-Op Diagnosis: Screening in patient at increased risk:Family history of 1st-degree relative withcolorectal cancer before age 60 years, Lastcolonoscopy: March 2018 Medications: Fentanyl 100 micrograms IV, Midazolam 4 mgIV, The level of sedation administered wasmoderate Procedure Description: The patient had risks, benefits and alternatives explained to andgave informed consent. The patient had a stable cardiopulmonary status and judged an adequate candidate for conscious sedation. The endoscope PCF-H190L [id number] was passed through the anus andadvanced to the cecum, identified by appendiceal orifice and ileocecal valve.The colonoscopy was performed without difficulty. The patient toleratedthe procedure well. The quality of the bowel preparation was good. The ileocecal valve, appendiceal orifice, and rectum were photographed. Complications: No immediate complications. Estimated Blood Loss & Specimen: Estimated blood loss: none. Specimen collected - None Findings: The perianal and digital rectal examinations were normal. Multiple large-mouthed and small-mouthed diverticula were found inthe sigmoid colon. There was narrowing of the colon in association withthe diverticular opening. The exam was otherwise without abnormality. Impressions/Post-Op Diagnosis: - Moderate diverticulosis in the sigmoid colon. There was narrowingof the colon in association with the diverticular opening. - The examination was otherwise normal. - No specimens collected. Recommendation: - Patient has a contact number available for emergencies. The signsand symptoms of potential delayed complications were discussed with the patient. Return to normal activities tomorrow. Written discharge instructions were provided to the patient. - Resume previous diet. - Continue present medications. - Repeat colonoscopy in 5 years for screening purposes. Moderate Sedation: A time out was performed before the procedure. Moderate (conscious) sedation was administered by the endoscopy nurse and supervised bythe endoscopist. The following parameters were monitored: oxygensaturation, heart rate, blood pressure, EKG, CO2, respiratory rate, adequacy of pulmonary ventilation and reponse to care. Please refer to the patient's medical record flowsheets and nursing notes for moderate sedation details. Total physician intraservice time was 16 minutes. Beto Shaffer MD 04/14/2024 9:16:04 AM This report has been signed electronically. Note Initiated On: 04/14/2024 8:30 AM Procedure Code(s): --- Professional --- 00203, Colonoscopy, flexible; diagnostic, including collection of specimen(s) bybrushing or washing, when performed (separateprocedure) Diagnosis Code(s): --- Professional --- Z80.0, Family history of malignant neoplasmof digestive organs K57.30, Diverticulosis of large intestine without perforation or abscess withoutbleeding CPT copyright 2022 [employer]. All rights reserved. The codes documented in this report are preliminary and upon glassblower reviewmay be revised to meet current compliance requirements. Scope In: 8:50:56 AM Scope Withdrawal Time 0 hours 6 minutes 3 seconds Scope Out: 9:04:05 AM Beto Shaffer MD PROCEDURE ORD * XR MAMMO BILAT SCREENING (02/25/2019 3:41 PM CDT) Anatomical Region Laterality Modality BREASTS, Breast Left, Breast Right Bilateral Mammography Impressions 02/26/2019 12:22 PM CDT ??There is no radiographic evidence for malignancy. ??Recommend annual mammograms. A lay language report of this examination will be provided to the patient. MAMMOGRAM ASSESSMENT: ??ACR 2 Benign Narrative 02/26/2019 12:22 PM CDT XR MAMMO BILAT SCREENING [[id number]] CLINICAL HISTORY: ??This is an asymptomatic 68 y.o. patient. INDICATION FOR EXAM: Mammogram Screening. TECHNIQUE: CC & MLO views were obtained. ??This digital study was evaluated with the assistance of Computer-Aided Detection. COMPARISON FILMS: Yes 02/23/16 [facility] 02/10/15 [facility] FINDINGS: ??Mammographically, the breast tissue has scattered fibroglandular densities. ??No suspicious masses or microcalcifications. ?? Benign appearing calcifications within both breasts. Sol Crawford MD MAMMO * LIPID PANEL W REFLEX MEASURED LDL (06/26/2016 7:33 AM CDT) CHOLESTEROL,TOTAL 171 100 - 199 mg/dL 06/26/2016 8:25 AM CDT [facility] TRIGLYCERIDES 83 <150 mg/dL 06/26/2016 8:25 AM CDT [facility] HDL CHOLESTEROL 59 >40 mg/dL 06/26/2016 8:25 AM CDT [facility] NON-HDL CHOLESTEROL 112 <145 mg/dl 06/26/2016 8:25 AM CDT [facility] CHOL/HDL RATIO 2.90 <4.50 06/26/2016 8:25 AM CDT [facility] LDL CHOLESTEROL 95 <=130 mg/dL 06/26/2016 8:25 AM CDT [facility] PATIENT STATUS FASTING 06/26/2016 8:25 AM CDT [facility] Blood BLOOD SPECIMEN / Unknown Venipuncture / Unknown 06/26/2016 7:33 AM CDT 06/26/2016 7:33 AM CDT Nadine Conroy MD CHEMISTRY [facility] [address] [place] [address], * ANTI HCV [70244.2] (02/09/2014 7:23 AM CDT) HEPATITIS C ANTIBODY Non-Reacti ve Non-Reacti ve 02/09/2014 3:30 PM CDT [facility] Blood specimen (specimen) BLOOD SPECIMEN / Unknown Venipuncture / Unknown 02/09/2014 7:23 AM CDT 02/09/2014 7:23 AM CDT Narrative [facility] - 02/09/2014 3:30 PM CDT Antibodies to HCV not detected; does not exclude the possibility of exposure to HCV. Carla Reyes SEND OUTS [facility] [address] [place] [address], [place] * XR DEXA BONE DENSITY 2 SITES (04/07/2008 8:48 AM CDT) Anatomical Region Laterality Modality Spine, HIPS, HIPL, HIPR Other 04/07/2008 8:48 AM CDT Narrative 04/14/2008 11:40 AM CDT Please see scanned document for results of this study. Procedure Note Desi Walton - 04/17/2008 Please see scanned document for results of this study. Carla Reyes DEXA from Last 3 Months or Most Recently Relevant to Health Maintenance Care Teams Grill Attendant Relationship Specialty Start Date End Date Sol Crawford MD [address] [place] [address] PCP - General Family Practice 04/14/24
== END 2024-07-20 06:38 | disposition home or self-care (01) ==
PROVIDERS: PCP Family Medicine; Visit Provider Family Medicine
DX: N39.0 Urinary tract infection, site not specified (principal)
CPT/HCPCS: 87086

== ENCOUNTER 2024-09-14 10:41 | Outpatient (CLI) | payer MEDICARE, OTHER, SELFPAY ==
--- OUTSIDE RECORDS SUMMARY | 2024-09-14 10:44 | XMS_ITS | Clinical Summary ---
Author Organization [employer] [facility] Address [place], [place] [address] Care Team Providers Care Mobile Qa Tester Name Role Phone Sol Crawford MD Primary [...] 79 04/14/2024 9:25 AM CDT Temperature 37.2 C (98.9 F) 03/01/2022 11:44 AM CDT Respiratory Rate 16 04/14/2024 9:25 [...] candidate for conscious sedation. The endoscope [id number] was passed through the anus andadvanced to [...] 8:30 AM Procedure Code(s): --- Professional --- 81180, Colonoscopy, flexible; diagnostic, including collection of specimen(s) bybrushing or washing, when performed (separateprocedure) Diagnosis Code(s): --- Professional --- Z80.0, Family history of malignant neoplasmof digestive organs K57.30, Diverticulosis of large intestine without perforation or abscess withoutbleeding CPT copyright 2022 [employer]. All rights reserved. The codes documented in this report are preliminary and upon thermal technician reviewmay be revised to meet current compliance requirements. Scope In: 8:50:56 AM Scope Withdrawal Time 0 hours 6 minutes 3 seconds Scope Out: 9:04:05 AM Beto Shaffer MD PROCEDURE ORD * XR MAMMO BILAT SCREENING (02/25/2019 3:41 PM CDT) Anatomical Region Laterality Modality BREASTS, Breast Left, Breast Right Bilateral Mammography Impressions 02/26/2019 12:22 PM CDT There is no radiographic evidence for malignancy. Recommend annual mammograms. A lay language report of this examination will be provided to the patient. MAMMOGRAM ASSESSMENT: ACR 2 Benign Narrative 02/26/2019 12:22 PM CDT XR MAMMO BILAT SCREENING [[id number]] CLINICAL HISTORY: This is an asymptomatic 68 y.o. patient. INDICATION FOR EXAM: Mammogram Screening. TECHNIQUE: CC & MLO views were obtained. This digital study was evaluated with the assistance of Computer-Aided Detection. COMPARISON FILMS: Yes 02/23/16 [facility] 02/10/15 [facility] FINDINGS: Mammographically, the breast tissue has scattered fibroglandular densities. No suspicious masses or microcalcifications. Benign appearing calcifications within both breasts. Sol Crawford MD MAMMO * LIPID PANEL W REFLEX MEASURED LDL (06/26/2016 7:33 AM CDT) CHOLESTEROL,TOTAL 171 100 - 199 mg/dL 06/26/2016 8:25 AM CDT [facility] TRIGLYCERIDES 83 <150 mg/dL 06/26/2016 8:25 AM CDT [facility] HDL CHOLESTEROL 59 >40 mg/dL 06/26/2016 8:25 AM CDT [facility] NON-HDL CHOLESTEROL 112 <145 mg/dl 06/26/2016 8:25 AM CDT [facility] CHOL/HDL RATIO 2.90 <4.50 06/26/2016 8:25 AM CDT [facility] LDL CHOLESTEROL 95 <=130 mg/dL 06/26/2016 8:25 AM CDT [facility] PATIENT STATUS FASTING 06/26/2016 8:25 AM CDT [facility] Blood BLOOD SPECIMEN / Unknown Venipuncture / Unknown 06/26/2016 7:33 AM CDT 06/26/2016 7:33 AM CDT Nadine Conroy MD CHEMISTRY [facility] [address] [place] [address], * ANTI HCV [25527.2] (02/09/2014 7:23 AM CDT) HEPATITIS C ANTIBODY Non-Reacti ve Non-Reacti ve 02/09/2014 3:30 PM CDT [facility] Blood specimen (specimen) BLOOD SPECIMEN / Unknown Venipuncture / Unknown 02/09/2014 7:23 AM CDT 02/09/2014 7:23 AM CDT Narrative [facility] - 02/09/2014 3:30 PM CDT Antibodies to HCV not detected; does not exclude the possibility of exposure to HCV. Carla Reyes SEND OUTS [facility] [address] [place] [address], [place] * XR DEXA BONE DENSITY 2 [...] Recently Relevant to Health Maintenance Care Teams Mobile Qa Tester Relationship Specialty Start Date End Date Sol Crawford MD [address] [place], [place] [phone] PCP - General Family Practice 04/14/24
== END 2024-09-14 10:42 | disposition home or self-care (01) ==
PROVIDERS: PCP Family Medicine; Visit Provider Family Medicine
DX: D64.9 Anemia, unspecified (principal); I10 Essential (primary) hypertension; E78.5 Hyperlipidemia, unspecified; E55.9 Vitamin D deficiency, unspecified; R73.03 Prediabetes; Q87.2 Congenital malformation syndromes predominantly involving limbs
CPT/HCPCS: 80053; 80061; 82043; 82306; 82570; 82607; 82728; 83540; 83550; 87086

== ENCOUNTER 2024-11-29 14:30 | Outpatient (CLI) | payer MEDICARE, OTHER, SELFPAY | END 2024-11-29 14:31 | disposition home or self-care (01) | LOC: MAMMO 14:32 | PROVIDERS: PCP Family Medicine; Visit Provider Family Medicine | DX: Z12.31 Encounter for screening mammogram for malignant neoplasm of breast (principal) | CPT/HCPCS: 77063; 77067 ==

== ENCOUNTER 2025-03-15 09:20 | Outpatient (CLI) | payer MEDICARE, OTHER, SELFPAY | END 2025-03-15 09:21 | disposition home or self-care (01) | LOC: NFLDREF 03-17 15:00 | PROVIDERS: PCP Family Medicine; Referring Provider Family Medicine; Visit Provider Family Medicine | DX: R73.03 Prediabetes (principal); Q87.2 Congenital malformation syndromes predominantly involving limbs; I10 Essential (primary) hypertension; G47.00 Insomnia, unspecified; R80.9 Proteinuria, unspecified | CPT/HCPCS: 80048; 82043; 82570 ==

== ENCOUNTER 2025-09-20 07:46 | Outpatient (CLI) | payer MEDICARE, OTHER, SELFPAY | END 2025-09-20 07:47 | disposition home or self-care (01) | LOC: NFLDREF 09-25 20:36 | PROVIDERS: PCP Family Medicine; Referring Provider Family Medicine; Visit Provider Family Medicine | DX: D64.9 Anemia, unspecified (principal); I10 Essential (primary) hypertension; E78.5 Hyperlipidemia, unspecified; R73.03 Prediabetes | CPT/HCPCS: 80053; 80061; 82043; 82570; 82607; 82728; 83540; 83550 ==

== ENCOUNTER 2025-10-11 14:57 | Outpatient (CLI) | payer MEDICARE, OTHER, SELFPAY ==
--- NOTE | 2025-10-11 15:00 | CRLHL7_ITS ---
For Patients: As a result of the Cures Act, medical imaging exams and procedure reports are released immediately into your electronic medical record. You may view this report before your referring provider. If you have questions, please contact your health care provider. INDICATION: Lung cancer screening. History of smoking. TECHNIQUE: Low-dose lung cancer screening non-contrast CT chest. Dose reduction techniques were used. COMPARISON: 06/25/2022 FINDINGS: NODULES: Stable 5 millimeter right lower lobe pulmonary nodule. No new nodule. LUNGS AND PLEURA: Mild peripheral fibrotic changes in both lower lobes. MEDIASTINUM: Stable low-density left thyroid lobe nodule. No enlarged lymph nodes. CORONARY ARTERY CALCIFICATION: None. LIMITED UPPER ABDOMEN: 6.0 cm hiatal hernia. MUSCULOSKELETAL: No fracture. IMPRESSION: Stable right lower lobe pulmonary nodule. LUNG-RADS CATEGORY: 2: Benign. RADIOLOGIST RECOMMENDATION: Continue annual screening, if eligible, with low-dose CT chest in 12 months. Please note that all CT scans at this facility use dose modulation, iterative reconstruction, and/or weight-based dosing when appropriate to reduce radiation dose to as low as reasonably achievable. Dictated by Jasper Correa MD @ 10/12/2025 11:00:52 AM (Electronically Signed)
== END 2025-10-11 14:58 | disposition home or self-care (01) ==
LOC: CT 14:58
PROVIDERS: PCP Family Medicine; Visit Provider Family Medicine
DX: Z12.2 Encounter for screening for malignant neoplasm of respiratory organs (principal); R91.8 Other nonspecific abnormal finding of lung field; F17.210 Nicotine dependence, cigarettes, uncomplicated
CPT/HCPCS: 71271